=== PATIENT | female | born 1970 | race American Indian/Alaskan Native ===

== ENCOUNTER 2017-03-10 09:23 | Inpatient (IN) | payer MEDICAID, OTHER ==
[2017-03-10 10:48] LABS: BASO % 0.9 % (0.0-2.0); EOS % 0.6 % (0.0-4.0); HEMOGLOBIN 16.8 g/dL (11.0-16.0); LYMPH # 1.4 K/uL (1.0-4.3); LYMPH % 29.8 % (20.0-40.0); MEAN CELL VOLUME 91.8 fL (81.0-99.0); MEAN CORPUSCULAR HEMOGLOBIN 31.8 pg (27.0-31.0); MEAN CORPUSCULAR HGB CONC 34.7 g/dL (33.0-37.0); MEAN PLATELET VOLUME 9.1 fL (7.2-11.7); MONO # 0.2 K/uL (0.0-0.8); MONO % 3.4 % (0.0-10.0); NEUT % 65.3 % (50.0-75.0); NRBC % 0.1 % (0.0-2.0); RBC 5.28 Mil/uL (3.80-5.20); RED CELL DISTRIBUTION WIDTH 14.3 % (11.5-14.5); WHITE BLOOD COUNT 4.6 K/uL (4.8-10.8)
[2017-03-10 10:54] LABS: HCG,QUALITATIVE URINE NEGATIVE (NEGATIVE)
[2017-03-10 11:01] LABS: SQUAMOUS EPITHIAL 1 /hpf (0-5); URINE BACTERIA RARE (<OCC); URINE BILIRUBIN NEGATIVE (NEGATIVE); URINE BLOOD 2+ (NEGATIVE); URINE CLARITY Clear (Clear); URINE COLOR Yellow (YELLOW); URINE GLUCOSE (UA) NORMAL (Normal); URINE LEUKOCYTE ESTERASE NEG Leu/uL (Negative); URINE NITRATE NEGATIVE (NEGATIVE); URINE PROTEIN 2+ mg/dL (NEGATIVE); URINE UROBILINOGEN NORMAL mg/dL (0.2-1.0)
[2017-03-10 11:02] LABS: ALBUMIN 4.6 g/dL (3.5-5.0); ALT/SGPT 32 U/L (9-52); AST/SGOT 23 U/L (14-36); BLOOD UREA NITROGEN 13 mg/dL (7-17); CALCIUM 9.3 mg/dl (8.6-10.4); GFR AFRICAN-AMERICAN > 60; GFR NON-AFRICAN AMERICAN > 60
[2017-03-10 11:08] LABS: ALB/GLOB RATIO 1.2 (1.0-2.1)
[2017-03-10 11:29] LABS: BARBITURATES, UR NEGATIVE (NEGATIVE); PHENCYCLIDINE, UR NEGATIVE (NEGATIVE)
[2017-03-10 11:51] LABS: BENZODIAZEPINES, UR POSITIVE (NEGATIVE); OPIATES, UR POSITIVE (NEGATIVE)
--- NOTE | 2017-03-10 11:57 | C.PDOC ---
History Of Present Illness 46 year old female presents to ED requesting detox from heroin, xanax, and cocaine. Last use was yesterday at 1700. Pt complaints of nausea, and intermittent vomiting since yesterday. Otherwise, denies fever, chills, severe headache, visual changes, focal deficits, CP, SOB, dyspnea, palpitation, diarrhea, abdominal pain, hematemesis, back pain, dysuria, hematuria, frequency , chest pain, SOB, or fever. Time Seen by Provider: 03/10/17 09:32 Chief Complaint (Nursing): Substance Abuse History Per: Patient History/Exam Limitations: no limitations Onset/Duration Of Symptoms: Days Current Symptoms Are (Timing): Still Present Suicide/Self Injury Attempted (Context): None Associated Symptoms: denies: Suicidal Thoughts, Suicidal Plan Involuntary Hold By: None Recent travel outside of the [place]: No Additional History Per: Patient Past Medical History Reviewed: Historical Data, Nursing Documentation, Vital Signs Vital Signs: Last Vital Signs Temp 99.6 F 03/10/17 17:18 Pulse 77 03/10/17 17:18 Resp 16 03/10/17 17:18 BP 160/95 H 03/10/17 17:18 Pulse Ox 100 03/10/17 17:18 - Medical History PMH: Bronchitis, HTN Denies: Diabetes, Hepatitis, HIV, Seizures, Sexually Transmitted Disease Surgical History: Back Surgery Family History: States: Unknown Family Hx - Social History Hx Alcohol Use: No Hx Substance Use: Yes - Immunization History Hx Tetanus Toxoid Vaccination: No Hx Influenza Vaccination: No Hx Pneumococcal Vaccination: No Review Of Systems Except As Marked, All Systems Reviewed And Found Negative. Constitutional: Negative for: Fever, Chills Cardiovascular: Negative for: Chest Pain, Palpitations Respiratory: Negative for: Cough, Shortness of Breath Gastrointestinal: Positive for: Nausea, Vomiting. Negative for: Abdominal Pain , Diarrhea, Hematemesis Neurological: Negative for: Headache, Dizziness Psych: Negative for: Suicidal ideation Physical Exam - Physical Exam Appears: Non-toxic, No Acute Distress Skin: Normal Color, Warm, Dry Head: Normacephalic Eye(s): bilateral: PERRL Nose: No Flaring Oral Mucosa: Moist, No Drooling Neck: Supple Cardiovascular: Rhythm Regular, No Murmur Respiratory: No Accessory Muscle Use, No Rales, No Rhonchi, No Wheezing Gastrointestinal/Abdominal: Soft, No Tenderness Extremity: Normal ROM, No Deformity Neurological/Psych: Oriented x3, Normal Speech ED Course And Treatment - Laboratory Results Result Diagrams: 03/10/17 10:41 03/10/17 10:41 Lab Interpretation: No Acute Changes Urine POC: Negative ECG: Interpreted By Me, Viewed By Me ECG Rhythm: Sinus Rhythm Interpretation Of ECG: SR@66/min, NAD, Left ventricular hyperthrophy, no acute ST-T changes O2 Sat by Pulse Oximetry: 100 (RA) Pulse Ox Interpretation: Normal Progress Note: While in ER, pt had multiple episodes of vomiting. Pt was given Zofran, Pepcid, and Ativan. Blood work, UA was ordered and reviewed. HTN was noted on presentation. Pt denies headache, dizziness, visual changes, focal deficits, CP, SOB, dyspnea, palpitation, or any other assciated sx. Pt admits, non-complaint with HTN medication. Clonidine given. At 12:02, pt was seen by LYNDSAY Salinas and case discussed with . Admission arranged to detox with Dx: opioid, benzo dependance. At 14:20, was told by RN, BP still remained high. Another dose of Clonidine given. At 16:20, as per RN, psych floor refused transfer until BP stabilized. Norvasc given. At 17:10, BP improved. Pt was accepted by psychiatrist now. Pt remained stable during the ED evaluation, neurologicaly intact. 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 - Scribe Statement The provider has reviewed the documentation as recorded by the Wilfredibclarke Hale All medical record entries made by the David were at my direction and personally dictated by me. I have reviewed the chart and agree that the record accurately reflects my personal performance of the history, physical exam, medical decision making, and the department course for this patient. I have also personally directed, reviewed, and agree with the discharge instructions and disposition.
[2017-03-10] MEDS ORDERED: Buprenorphine Hydrochloride 2 mg SL ONE ×2 (18:28→18:44)
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
--- NOTE | 2017-03-10 23:14 | PCM.BM ---
<Naya Vidal - Last Filed: 03/10/17 23:13> Treatment Plan Problems - Problems identified on initial assessmt Ineffective Coping Skills Date Initiated: 03/10/17 Time Initiated: 23:14 Assessment reference: NA Status: Active Treatment assets and liabiliti Patient Assests: ADL independent Patient Liabilities: substance abuse - Milieu Protocol Maintain good personal hygiene: daily Encourage regular showers, daily Remind patient to perform daily oral care, other Assist patient to perform ADL's Maintain personal safety: every shift Educate patient to report safety concerns to staff, every shift Monitor environment for contraband/sharps Medication safety: Monitor for expected outcome, potential side effects: every shift, Assess barriers to learning: every shift, Assess readiness for medication education: every shift <Maxime Alanis - Last Filed: 03/13/17 22:57> - Diagnosis (1) Opioid use disorder, severe, dependence Status: Acute Interventions: 03/13/17 22:57 * Assess 7x/week regarding severity of withdrawal * Educate regarding risks, benefits, side effects and alternatives of medications * Use Motivational Interviewing for abstinence * Use CBT for relapse prevention * Medication management for withdrawal symptoms * Encourage medication assisted treatment *
[2017-03-11] MEDS ORDERED: Buprenorphine Hydrochloride 2 mg SL SCH (10:00)
--- NOTE | 2017-03-11 10:02 | CP.PCM.PN ---
<PankajTito - Last Filed: 03/11/17 12:13> Subjective - Date & Time of Evaluation Date of Evaluation: 03/11/17 Time of Evaluation: 09:59 - Subjective Subjective: PGY-[address] Avila's service: Pt seen and examined at bedside in detox unit. Nursing reports pt has been able to keep meds down this AM, and BP improved. Patient found eating breakfast comfortably. She reports intense nausea, with episodes of vomiting last night. She now states she is less nauseous and has been tolerating liquid breakfast so far. She denies abdominal pain, but admits when she withdrawals she often gets diarrhea. Patient admits 10+ year history of cocaine, heroin, and xanax. Last use was 03/09/17 - 10-20 bags of heroin, 3 bags of cocaine and 1/2 brick of Xanax. She denies vision changes, weakness, headache, or oliguria. Objective - Vital Signs/Intake and Output Vital Signs (last 24 hours): Temp Pulse Resp BP Pulse Ox 98.2 F 82 18 110/66 100 03/11/17 05:58 03/11/17 05:58 03/11/17 05:58 03/11/17 05:58 03/11/17 05:58 - Medications Medications: Current Medications Clonidine HCl (Catapres) 0.1 mg PO Q8H PRN PRN Reason: Opioid Withdrawal Last Admin: 03/10/17 22:00 Dose: 0.1 mg Hydroxyzine HCl (Atarax) 25 mg PO Q6H PRN PRN Reason: Anxiety Lorazepam (Ativan) 1 mg PO Q6H PRN PRN Reason: Withdrawal Symptoms Last Admin: 03/10/17 22:00 Dose: 1 mg Ondansetron HCl (Zofran Odt) 4 mg PO Q6H PRN PRN Reason: Nausea/Vomiting Last Admin: 03/10/17 18:40 Dose: 4 mg Ondansetron HCl (Zofran Inj) 4 mg IM ONCE PRN PRN Reason: vomiting Trazodone HCl (Desyrel) 50 mg PO HS PRN PRN Reason: Insomnia - Labs Labs: 03/10/17 10:41 03/10/17 10:41 - Constitutional Appears: Non-toxic, No Acute Distress, Unkempt - Head Exam Head Exam: ATRAUMATIC, NORMAL INSPECTION - Eye Exam Eye Exam: EOMI. absent: Scleral icterus - ENT Exam ENT Exam: Mucous Membranes Moist - Neck Exam Neck Exam: Full ROM - Respiratory Exam Respiratory Exam: Clear to Ausculation Bilateral, NORMAL BREATHING PATTERN. absent: Accessory Muscle Use, Rales, Rhonchi, Wheezes - Cardiovascular Exam Cardiovascular Exam: REGULAR RHYTHM, +S1, +S2 - GI/Abdominal Exam GI & Abdominal Exam: Soft, Normal Bowel Sounds. absent: Tenderness - Extremities Exam Extremities Exam: Normal Inspection. absent: Pedal Edema, Tenderness - Back Exam Back Exam: absent: CVA tenderness (L), CVA tenderness (R) - Neurological Exam Neurological Exam: Alert, Awake, Oriented x3 - Psychiatric Exam Psychiatric exam: Normal Affect, Normal Mood - Skin Skin Exam: Normal Color, Warm Assessment and Plan - Assessment and Plan (Free Text) Plan: Uncontrolled HTN Likely a manifestation from current withdrawals Patient admits taking anti-hypertensive at home but does not remember name Clonidine 0.1mg PO Q8H (prescribed by psych team for withdrawal symptoms) Will Monitor and add med if necessary Polysubstance abuse Management per psychiatry Tito Lira PGY-2 Discussed with attending, Dr. Avila <Tobin Avila - Last Filed: 03/11/17 14:32> Objective - Vital Signs/Intake and Output Vital Signs (last 24 hours): Temp Pulse Resp BP Pulse Ox 98.7 F 70 20 139/86 100 03/11/17 13:55 03/11/17 13:55 03/11/17 13:55 03/11/17 13:55 03/11/17 13:55 - Medications Medications: Current Medications Buprenorphine HCl (Subutex) 4 mg SL .TAPER SUSANA PRN Reason: Taper Stop: 03/14/17 11:02 Clonidine HCl (Catapres) 0.1 mg PO Q8H PRN PRN Reason: Opioid Withdrawal Last Admin: 03/10/17 22:00 Dose: 0.1 mg Hydroxyzine HCl (Atarax) 25 mg PO Q6H PRN PRN Reason: Anxiety Lorazepam (Ativan) 1 mg PO Q6H PRN PRN Reason: Withdrawal Symptoms Last Admin: 03/11/17 10:21 Dose: 1 mg Ondansetron HCl (Zofran Odt) 4 mg PO Q6H PRN PRN Reason: Nausea/Vomiting Last Admin: 03/11/17 10:21 Dose: 4 mg Trazodone HCl (Desyrel) 50 mg PO HS PRN PRN Reason: Insomnia - Labs Labs: 03/10/17 10:41 03/10/17 10:41 Attending/Attestation - Attestation I have personally seen and examined this patient.: Yes I have fully participated in the care of the patient.: Yes I have reviewed all pertinent clinical information, including history, physical exam and plan: Yes Notes (Text): 03/11/17 14:32 Medical attending: Patient was seen and examined by the medical scheduler and myself. Agree with the above note by the medical scheduler. The patient when we saw her was ambulating in the [address] unit. She did not appear to be in any acute distress when we saw her. When the patient came in yesterday at night I was informed that she was having a lot of nausea, a lot of vomiting and there was some concern that the patient would not be able to hold down her medications. Since then she's done well she says. The nausea and vomiting subsided. She's been able to tolerate by mouth medications. We will continue to monitor see how the patient does thank you Tobin Avila
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
--- NOTE | 2017-03-12 07:55 | CP.PCM.PN ---
<Tito Lira - Last Filed: 03/12/17 10:52> Subjective - Date & Time of Evaluation Date of Evaluation: 03/12/17 Time of Evaluation: 07:55 - Subjective Subjective: PGY-[address] Avila's service: Pt seen and examined at bedside in detox unit. Nursing reports patient has vomited several times last evening. Pt was briefly hypertensive overnight during vomiting episode otherwise patient well controlled. Patient found lying in bed. She states she still feels slightly nauseous but has held down liquid breakfast. She denies N/V episodes this AM. She further denies headache, fever, chills, vision changes, abdominal pain, N/V. Objective - Vital Signs/Intake and Output Vital Signs (last 24 hours): Temp Pulse Resp BP Pulse Ox 98.5 F 83 18 134/89 96 03/12/17 06:06 03/12/17 06:06 03/12/17 06:06 03/12/17 06:06 03/12/17 06:06 - Medications Medications: Current Medications Buprenorphine HCl (Subutex) 4 mg SL .TAPER SUSANA PRN Reason: Taper Stop: 03/14/17 11:02 Clonidine HCl (Catapres) 0.1 mg PO Q8H PRN PRN Reason: Opioid Withdrawal Last Admin: 03/11/17 20:09 Dose: 0.1 mg Hydroxyzine HCl (Atarax) 25 mg PO Q6H PRN PRN Reason: Anxiety Last Admin: 03/12/17 01:28 Dose: 25 mg Lorazepam (Ativan) 1 mg PO Q6H PRN PRN Reason: Withdrawal Symptoms Last Admin: 03/11/17 20:09 Dose: 1 mg Ondansetron HCl (Zofran Odt) 4 mg PO Q6H PRN PRN Reason: Nausea/Vomiting Last Admin: 03/12/17 01:28 Dose: 4 mg Trazodone HCl (Desyrel) 50 mg PO HS PRN PRN Reason: Insomnia Last Admin: 03/12/17 01:28 Dose: 50 mg - Labs Labs: 03/10/17 10:41 03/10/17 10:41 - Additional Findings Additional findings: - Constitutional Appears: Non-toxic, No Acute Distress, Unkempt - Head Exam Head Exam: ATRAUMATIC, NORMAL INSPECTION - Eye Exam Eye Exam: EOMI. absent: Scleral icterus - ENT Exam ENT Exam: Mucous Membranes Moist - Neck Exam Neck Exam: Full ROM - Respiratory Exam Respiratory Exam: Clear to Ausculation Bilateral, NORMAL BREATHING PATTERN. absent: Accessory Muscle Use, Rales, Rhonchi, Wheezes - Cardiovascular Exam Cardiovascular Exam: REGULAR RHYTHM, +S1, +S2 - GI/Abdominal Exam GI & Abdominal Exam: Soft, Normal Bowel Sounds. absent: Tenderness - Extremities Exam Extremities Exam: Normal Inspection. absent: Pedal Edema, Tenderness - Back Exam Back Exam: absent: CVA tenderness (L), CVA tenderness (R) - Neurological Exam Neurological Exam: Alert, Awake, Oriented x3 - Psychiatric Exam Psychiatric exam: Normal Affect, Normal Mood - Skin Skin Exam: Normal Color, Warm Assessment and Plan - Assessment and Plan (Free Text) Plan: Uncontrolled HTN Likely a manifestation from current withdrawals Patient admits taking anti-hypertensive Lotensin at home but "has not taken it recently" Clonidine 0.1mg PO Q8H (prescribed by psych team for withdrawal symptoms) Ativan 1 mg PO Q6H PRN (prescribed by psych team for withdrawal symptoms) Polysubstance abuse Management per psychiatry Medicine team will sign off at this time. BP is well controlled save for one episode of HTN following vomiting episode last evening. Consult again if needed Tito Lira PGY-2 Discussed with attending, Dr. Avila <Tobin Avila - Last Filed: 03/12/17 12:18> Objective - Vital Signs/Intake and Output Vital Signs (last 24 hours): Temp Pulse Resp BP Pulse Ox 98.6 F 95 H 18 115/72 98 03/12/17 08:29 03/12/17 08:29 03/12/17 08:29 03/12/17 08:29 03/12/17 08:29 - Medications Medications: Current Medications Clonidine HCl (Catapres) 0.1 mg PO Q8H PRN PRN Reason: Opioid Withdrawal Last Admin: 03/11/17 20:09 Dose: 0.1 mg Hydroxyzine HCl (Atarax) 25 mg PO Q6H PRN PRN Reason: Anxiety Last Admin: 03/12/17 10:11 Dose: 25 mg Lorazepam (Ativan) 1 mg PO Q6H PRN PRN Reason: Withdrawal Symptoms Last Admin: 03/11/17 20:09 Dose: 1 mg Ondansetron HCl (Zofran Odt) 4 mg PO Q6H PRN PRN Reason: Nausea/Vomiting Last Admin: 03/12/17 01:28 Dose: 4 mg Trazodone HCl (Desyrel) 50 mg PO HS PRN PRN Reason: Insomnia Last Admin: 03/12/17 01:28 Dose: 50 mg - Labs Labs: 03/10/17 10:41 03/10/17 10:41 Attending/Attestation - Attestation I have personally seen and examined this patient.: Yes I have fully participated in the care of the patient.: Yes I have reviewed all pertinent clinical information, including history, physical exam and plan: Yes Notes (Text): 03/12/17 12:18 Medical attending: Patient was seen and examined by me, agree with the above note by medical claims analyst. When we saw her she reported that overnight she had some nausea and vomiting. However by daytime things that settled down after she was given her medication By the time we saw her she was not in any acute distress. She was in her room. She is says that she was able to drink fluids without any problems however she stomach felt too queasy to try area very solid food So at this time her neck and make any large changes. thank you Tobin Avila
[2017-03-12] MEDS ORDERED: Buprenorphine Hydrochloride 2 mg SL SCH ×3 (10:15→11:03)
[2017-03-12] MEDS ORDERED: Buprenorphine Hydrochloride 2 mg SL ONE (10:30)
--- NOTE | 2017-03-12 17:17 | PCM.PYCHPN ---
Psychiatric Progress Note - Psychiatric Progress Note Patient seen today, length of contact: 15 minutes Patient Chief Complaint: I'm feeling much better with the treatment. Problems Identified/Issues Discussed: Patient seen, chart reviewed, case discussed with the staff. Issues related to illness and treatment were discussed with the patient. Reported compliant with treatment with no adverse affects. Medical team is on the case for the control for hypertension. Aftercare discussed with the patient. At the time of evaluation, patient was awake alert oriented 3, had no delusions , no auditory or visual hallucinations, no suicidal ideations or homicidal ideations. Medical Problems: Hypertension Diagnostic Results: Reviewed DSM 5 Symptoms Update: Improving with treatment Medication Change: No Medical Record Reviewed: Yes Consults ordered or reviewed: Reviewed Mental Status Examination - Cognitive Function Orientation: Person, Place, Situation, Time Memory: Intact Attention: WNL Concentration: WNL Association: WNL Fund of Knowledge: WN Decription of patient's judgement and insights: Fair - Mood Mood: Anxious (Less than before) - Affect Affect: Other (Appropriate) - Speech Speech: Appropriate - Formal Thought Process Formal Thought Process: No Impairment Psychotic Thoughts and Behaviors: None - Suicidal Ideation Suicidal Ideation: No - Homicidal Ideation Homicidal Ideation: No Goal/Treatment Plan - Goal/Treatment Plan Need for Continued Stay: Remain at risks for inpatient hospitalization, Discharge may exacerbated symptoms, Severe functional impairment Progress Toward Problem(s) and Goals/Treatment Plan: Patient education. Supportive therapy. Motivational interview for abstinence. CBT for relapse prevention. Continue treatment as before. Patient attended side any follow-up care.. Estimated Date of D/C: 03/13/17 - Smoking Cessation Smoking Cessation Initiated: No
[2017-03-12 20:35] VITALS: RESP 18
[2017-03-13 06:06] VITALS: TEMP 98.6
[2017-03-13 08:49] VITALS: BP 108/68; PULSE 92; O2SAT 100
[2017-03-13] MEDS ORDERED: Buprenorphine Hydrochloride 2 mg SL ONE (08:53)
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
[2017-03-13] MEDS ORDERED: Buprenorphine Hydrochloride 2 mg SL SCH (10:00)
== END 2017-03-13 10:30 | disposition home or self-care (01) | DRG 430 ==
LOC: C.ER 09:23 → C.9E 12:38 → C.7D 17:29
PROVIDERS: ADMIT Psychiatry & Neurology Psychiatry; ATTEND Psychiatry & Neurology Psychiatry
PROC: GZ56ZZZ Individual Psychotherapy, Supportive (ICD-10-PCS; principal; 2017-03-10)
DX: F25.0 Schizoaffective disorder, bipolar type (principal); F11.20 Opioid dependence, uncomplicated; F14.10 Cocaine abuse, uncomplicated; Z91.19 Patient's noncompliance with other medical treatment and regimen; F17.210 Nicotine dependence, cigarettes, uncomplicated; I10 Essential (primary) hypertension; F19.10 Other psychoactive substance abuse, uncomplicated

== ENCOUNTER 2017-07-28 16:41 | Inpatient (IN) | payer MEDICAID, OTHER ==
[2017-07-28 16:53] VITALS: BMI 27.3
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
[2017-07-28 18:11] LABS: HCG,QUALITATIVE URINE NEGATIVE (NEGATIVE)
[2017-07-28 18:13] LABS: BASO # 0.1 K/uL (0.0-0.2); BASO % 0.9 % (0.0-2.0); EOS # 0.3 K/uL (0.0-0.7); HEMOGLOBIN 14.3 g/dL (11.0-16.0); LYMPH # 3.8 K/uL (1.0-4.3); LYMPH % 60.9 % (20.0-40.0); MEAN CELL VOLUME 91.8 fL (81.0-99.0); MEAN CORPUSCULAR HEMOGLOBIN 30.8 pg (27.0-31.0); MEAN CORPUSCULAR HGB CONC 33.6 g/dL (33.0-37.0); MEAN PLATELET VOLUME 8.9 fL (7.2-11.7); MONO # 0.4 K/uL (0.0-0.8); MONO % 6.4 % (0.0-10.0); NEUT # 1.7 K/uL (1.8-7.0); NEUT % 26.8 % (50.0-75.0); NRBC % 0.1 % (0.0-2.0); RBC 4.65 Mil/uL (3.80-5.20); RED CELL DISTRIBUTION WIDTH 14.1 % (11.5-14.5); WHITE BLOOD COUNT 6.2 K/uL (4.8-10.8)
[2017-07-28 18:21] LABS: SQUAMOUS EPITHIAL < 1 /hpf (0-5); URINE BACTERIA RARE (<OCC); URINE BILIRUBIN NEGATIVE (NEGATIVE); URINE BLOOD 1+ (NEGATIVE); URINE CLARITY Hazy (Clear); URINE GLUCOSE (UA) NORMAL (Normal); URINE LEUKOCYTE ESTERASE NEG Leu/uL (Negative); URINE PROTEIN 1+ mg/dL (NEGATIVE)
[2017-07-28 18:22] LABS: URINE COLOR YELLOW (YELLOW)
[2017-07-28 18:27] LABS: ALB/GLOB RATIO 1.4 (1.0-2.1); ALBUMIN 4.3 g/dL (3.5-5.0); ALT/SGPT 20 U/L (9-52); AST/SGOT 28 U/L (14-36); BARBITURATES, UR NEGATIVE (NEGATIVE); BLOOD UREA NITROGEN 11 mg/dL (7-17); GFR AFRICAN-AMERICAN > 60; GFR NON-AFRICAN AMERICAN 59; PHENCYCLIDINE, UR NEGATIVE (NEGATIVE)
[2017-07-28 18:32] LABS: BENZODIAZEPINES, UR POSITIVE (NEGATIVE); OPIATES, UR POSITIVE (NEGATIVE)
--- NOTE | 2017-07-28 20:24 | PCM.BM ---
<Maeve Valencia - Last Filed: 07/28/17 20:23> Treatment Plan Problems - Problems identified on initial assessmt potiential for opiate withdrawal Date Initiated: 07/28/17 Time Initiated: 20:23 Assessment reference: NA Status: Active Treatment assets and liabiliti Patient Assests: ADL independent, cognitively intact Patient Liabilities: substance abuse, medical problems - Milieu Protocol Maintain good personal hygiene: daily Encourage regular showers, daily Remind patient to perform daily oral care, daily Assist patient to perform ADL's Maintain personal safety: every shift Educate patient to report safety concerns to staff, every shift Monitor environment for contraband/sharps Medication safety: Monitor for expected outcome, potential side effects: every shift, Assess barriers to learning: every shift, Assess readiness for medication education: every shift <Maxime Alanis - Last Filed: 07/29/17 08:57> - Diagnosis (1) Opioid use disorder, severe, dependence Status: Acute Interventions: 07/29/17 08:57 * Assess 7x/week regarding severity of withdrawal * Educate regarding risks, benefits, side effects and alternatives of medications * Use Motivational Interviewing for abstinence * Use CBT for relapse prevention * Medication management for withdrawal symptoms * Encourage medication assisted treatment *
[2017-07-29] MEDS ORDERED: Aluminum Hydroxide/Magnesium Hydroxide Susp (30 mL) PO PRN (08:56)
--- NOTE | 2017-07-29 08:57 | PCM.PSYCH ---
Initial Psychiatric Evaluation - Initial Psychiatric Evaluation Type of Admission: Voluntary Legal Status: Capacity Chief Complaint (in patient's own words): "I don't feel well, I need help" History of Present Illness and Precipitating Events: The patient is seen, chart reviewed and case discussed. This is a 47-year-old -[place] Citizen female, with 2 adult children and 1 grandson child. She lives with her . She is on SSI. The patient is here for heroin detox and she uses 15 bags intranasally. She also smokes cocaine and uses Xanax 2 mg, half tablet a day but "sometimes." She was in detox 5 times and rehabilitation twice. She also smokes 1 pack per day cigarettes but denies all other drugs and alcohol. Past psych history: She was diagnosed with schizoaffective disorder and admitted twice but she says "long ago." Currently she is not on medications and she is stable. Medical history: Hypertension Family psych history: Denies Current Medications: Active Medications Generic Name Dose Route Start Last Admin Trade Name Freq PRN Reason Stop Dose Admin Clonidine HCl 0.1 mg 07/28/17 23:57 Catapres PO Q6 PRN Withdrawal Symptoms Ondansetron HCl 4 mg 07/28/17 23:56 Zofran Tab PO Q6 PRN Nausea/Vomiting Trazodone HCl 100 mg 07/28/17 22:38 07/28/17 22:44 Desyrel PO 100 mg HS PRN Administration insomnia Past Psychiatric History - Past Psychiatric History Previous Treatment History: Inpatient Pertinent Medical Hx (Current Medical&Sleep Prob, Allergies): Allergies Allergy/AdvReac Type Severity Reaction Status Date / Time Penicillins Allergy Severe ANGIOEDEMA Verified 07/28/17 16:51 Losartan/Hydrochlorothiazide [Losartan-Hctz 50-12.5 mg Tab] 1 each PO DAILY Review of Systems - Neurological Neurological: UNREMARKABLE - Psychiatric Psychiatric: Abnormal Sleep Pattern, Anxiety, Depression, Difficulty Concentrating. absent: Hallucinations, Homicidal Ideation, Suicidal Ideation Mental Status Examination - Personal Presentation Personal Presentation: Looks stated age - Affect Affect: Constricted - Motor Activity Motor Activity: Calm - Reliability in Providing Information Reliability in Providing Information: Good - Speech Speech: Organized - Mood Mood: Depressed (mild), Anxious - Formal Thought Process Formal Thought Process: No Impairment - Cognitive Functions Orientation: Person, Place, Situation, Time Sensorium: Alert Attention/Concentration: Easily distracted Estimate of Intelligence: Average Judgement: Intact, as evidence by: Insight regarding need for hospitalization Memory: Recent intact, as evidence by: Ability to recall events of the day, Remote intact, as evidenced by: Abilit to recall sig. life events - Risk Risk: Withdrawal, Diminished functioning - Strength & Assets Inventory Strength & Assets Inventory: Family support, Cooperative - Limitations Limitations: Other DSM 5 DX - DSM 5 DSM 5 Diagnosis: opioid withdrawal Opioid use disorder, severe Cocaine use disorder, severe Sedative, hypnotic or anxiolytic use disorder, mild Tobacco use disorder, severe Schizoaffective disorder, depressed Hypertension - Recommended/Plan of Treatment Treatment Recommendations and Plan of Treatment: Taper with methadone Gabapentin for augmentation if needed As needed medications All risks, benefits and alternatives of the meds discussed, and the pt agreed and understood. Attend groups and activities Supportive therapy and psychoeducation DE for abstinence CBT for relapse prevention Encourage MAT Refer to rehab or IOP, and self-help groups Smoking cessation with DE Nicotine patch if needed 34 min Projected ELOS: 4-5 days Prognosis: god w treatment - Smoking Cessation Smoking Cessation Initiated: Yes
[2017-07-29] MEDS: Potassium Chloride 20 mEq ER Tab PO SCH (10:21)
[2017-07-30] MEDS: Potassium Chloride 20 mEq ER Tab PO SCH (10:16)
[2017-07-30] MEDS: Pantoprazole 40 mg EC Tab PO SCH (10:17)
--- NOTE | 2017-07-30 11:50 | PCM.PYCHPN ---
Psychiatric Progress Note - Psychiatric Progress Note Patient seen today, length of contact: 16 min Patient Chief Complaint: "I am not well" Problems Identified/Issues Discussed: The pt is seen, chart reviewed, case discussed with staff. The pt is compliant with medications and reports no side-effects. Symptoms are improving but needs more time to stabilize. Still having BP fluctuations, irritable, screams and lies on the floor sometimes - better with ongoing detox After care discussed, support and psychoeducation given. Medication Change: Yes (detox changes daily) Medical Record Reviewed: Yes Mental Status Examination - Cognitive Function Orientation: Person, Place, Situation, Time Memory: Impaired Attention: Poor Concentration: Poor Association: WNL Fund of Knowledge: Poor - Mood Mood: Depressed (mild), Anxious - Affect Affect: Constricted - Speech Speech: Appropriate - Formal Thought Process Formal Thought Process: No Impairment - Suicidal Ideation Suicidal Ideation: No - Homicidal Ideation Homicidal Ideation: No Goal/Treatment Plan - Goal/Treatment Plan Need for Continued Stay: Discharge may exacerbated symptoms, Severe functional impairment Progress Toward Problem(s) and Goals/Treatment Plan: Taper with methadone Gabapentin for augmentation if needed As needed medications All risks, benefits and alternatives of the meds discussed, and the pt agreed and understood. Attend groups and activities Supportive therapy and psychoeducation MS for abstinence CBT for relapse prevention Encourage MAT Refer to rehab or IOP, and self-help groups Smoking cessation with MS Nicotine patch if needed Medicine will be consulted Estimated Date of D/C: 08/02/17
--- NOTE | 2017-07-30 16:19 | CP.PCM.CON ---
<Anjali Godinez - Last Filed: 07/30/17 16:51> History of Present Illness - History of Present Illness History of Present Illness: 47 year old female with history of hypertension, cocaine and heroin abuse was admitted to detox unit. Medical service was consulted to evaluate patient's uncontrolled hypertension. Patient has been sleeping in her room most of today. Her evening BP was found be be 210/109. Patient is very drowsy at the time of interview. I had to wake the patient up multiple times. Currently patient complains of dizziness and chills. She denies having blurred vision, shortness of breath, chest pain, vomiting, or urinary complaints. Patient is taking unknown hypertension medication (likely Losartan/HCTZ per chart review) outside of the hospital but was not compliant with it. She has been receiving clonidine while in detox for withdrawal symptoms. She has not been eating well due to withdrawals. PMHx: hypertension, cocaine and heroin abuse PSHx: back surgery Allergy: penicillins Social: Denies alcohol use. smokes a pack of cigarettes daily for 10+ years. Cocaine and heroin daily by snorting. Home meds: Losartan-HCTZ Review of Systems - Review of Systems All systems: reviewed and no additional remarkable complaints except - Constitutional Constitutional: As Per HPI, Chills, Fatigue - EENT Eyes: As Per HPI. absent: Blind Spots, Blurred Vision, Decreased Night Vision, Diplopia Ears: As Per HPI. absent: Decreased Hearing, Ear Discharge, Dizziness Nose/Mouth/Throat: As Per HPI. absent: Epistaxis, Nasal Trauma, Nose Pain - Breasts Breasts: As Per HPI - Cardiovascular Cardiovascular: As Per HPI. absent: Chest Pain, Chest Pain at Rest, Chest Pain with Activity, Dyspnea - Respiratory Respiratory: As Per HPI. absent: Cough, Dyspnea, Wheezing, Stridor - Gastrointestinal Gastrointestinal: As Per HPI. absent: Abdominal Pain, Diarrhea, Nausea, Vomiting - Genitourinary Genitourinary: As Per HPI. absent: Change in Urinary Stream, Hematuria, Pyuria - Reproductive: Female Reproductive:Female: As Per HPI - Menstruation Menstruation: As Per HPI - Musculoskeletal Musculoskeletal: As Per HPI. absent: Back Pain, Deformity, Joint Swelling, Tingling - Integumentary Integumentary: As Per HPI. absent: Alopecia, Change in Nails, Furuncle - Neurological Neurological: As Per HPI. absent: Dizziness, Tingling, Tremor, Vertigo - Psychiatric Psychiatric: As Per HPI. absent: Anxiety, Confusion, Depression - Endocrine Endocrine: As Per HPI, Fatigue. absent: Polydipsia, Polyphagia, Polyuria - Hematologic/Lymphatic Hematologic: As Per HPI Past Patient History - Past Medical History & Family History Past Medical History?: Yes - Past Social History Smoking Status: Heavy Smoker > 10 Cigarettes Daily - CARDIAC Hx Hypertension: Yes - PULMONARY Hx Bronchitis: Yes (Hx.) - NEUROLOGICAL Hx Seizures: No (Denied) - ENDOCRINE/METABOLIC Hx Endocrine Disorders: No - HEMATOLOGICAL/ONCOLOGICAL Hx Human Immunodeficiency Virus (HIV): No - MUSCULOSKELETAL/RHEUMATOLOGICAL Hx Musculoskeletal Disorders: Yes (SEE COMMENT) Hx Falls: No - GASTROINTESTINAL Hx Gastrointestinal Disorders: No - GENITOURINARY/GYNECOLOGICAL Hx Sexually Transmitted Disorders: No - PSYCHIATRIC Hx Substance Use: Yes - SURGICAL HISTORY Hx Tonsillectomy: Yes - ANESTHESIA Hx Anesthesia: Yes Hx Anesthesia Reactions: No Hx Malignant Hyperthermia: No Meds Allergies/Adverse Reactions: Allergies Allergy/AdvReac Type Severity Reaction Status Date / Time Penicillins Allergy Severe ANGIOEDEMA Verified 07/28/17 16:51 - Medications Medications: Current Medications Al Hydrox/Mg Hydrox/Simethicone (Maalox 30 Ml) 30 ml PO TID PRN PRN Reason: Indigestion / Heartburn Clonidine HCl (Catapres) 0.1 mg PO Q6 PRN PRN Reason: Withdrawal Symptoms Last Admin: 07/30/17 13:58 Dose: 0.1 mg Cyclobenzaprine HCl (Flexeril) 5 mg PO TID [facility] Last Admin: 07/30/17 13:58 Dose: 5 mg Dicyclomine HCl (Bentyl) 10 mg PO Q6 PRN PRN Reason: Muscle spasm Last Admin: 07/30/17 15:33 Dose: 10 mg Gabapentin (Neurontin) 300 mg PO TID [facility] Last Admin: 07/30/17 13:58 Dose: 300 mg Hydralazine HCl (Apresoline) 25 mg PO BID [facility] Hydrochlorothiazide (Hydrodiuril) 25 mg PO DAILY [facility] Last Admin: 07/30/17 11:36 Dose: Not Given Hydroxyzine HCl (Atarax) 50 mg PO Q6H PRN PRN Reason: Anxiety Last Admin: 07/30/17 15:34 Dose: 50 mg Ibuprofen (Motrin Tab) 600 mg PO Q6H PRN PRN Reason: Pain, moderate (4-7) Last Admin: 07/30/17 10:52 Dose: 600 mg Loperamide HCl (Imodium) 2 mg PO Q8 PRN PRN Reason: Diarrhea Lorazepam (Ativan) 1 mg IM Q6H PRN PRN Reason: severe anxiety Last Admin: 07/30/17 08:33 Dose: 1 mg Losartan Potassium (Cozaar) 75 mg PO DAILY [facility] Last Admin: 07/30/17 11:37 Dose: Not Given Methadone HCl (Methadone) 20 mg PO Q24H [facility] PRN Reason: Taper Stop: 08/03/17 09:59 Last Admin: 07/30/17 09:27 Dose: 20 mg Nicotine (Nicoderm Cq) 1 patch TD DAILY [facility] Last Admin: 07/30/17 11:37 Dose: Not Given Ondansetron HCl (Zofran Tab) 4 mg PO Q6 PRN PRN Reason: Nausea/Vomiting Last Admin: 07/30/17 01:34 Dose: 4 mg Ondansetron HCl (Zofran Inj) 4 mg IM DAILY@ONCE PRN PRN Reason: Nausea/Vomiting Last Admin: 07/30/17 06:53 Dose: 4 mg Pantoprazole Sodium (Protonix Ec Tab) 40 mg PO DAILY [facility] Last Admin: 07/30/17 10:17 Dose: 40 mg Trazodone HCl (Desyrel) 100 mg PO HS PRN PRN Reason: insomnia Last Admin: 07/30/17 01:35 Dose: 100 mg Physical Exam - Constitutional Appears: Non-toxic, No Acute Distress - Head Exam Head Exam: ATRAUMATIC, NORMOCEPHALIC - Eye Exam Eye Exam: EOMI, Normal appearance, PERRL - ENT Exam ENT Exam: Mucous Membranes Moist - Neck Exam Neck exam: Positive for: Normal Inspection - Respiratory Exam Respiratory Exam: Clear to Auscultation Bilateral, NORMAL BREATHING PATTERN. absent: Wheezes, Respiratory Distress - Cardiovascular Exam Cardiovascular Exam: REGULAR RHYTHM, +S1, +S2. absent: Diastolic murmur, Systolic Murmur - GI/Abdominal Exam GI & Abdominal Exam: Normal Bowel Sounds, Soft. absent: Tenderness - Extremities Exam Extremities exam: Positive for: normal capillary refill, normal inspection, pedal pulses present. Negative for: joint swelling, tenderness - Neurological Exam Neurological exam: Alert, CN II-XII Intact, Oriented x3 - Psychiatric Exam Psychiatric exam: Normal Affect, Normal Mood - Skin Skin Exam: Dry, Warm Results - Vital Signs Recent Vital Signs: Last Vital Signs Temp 100.4 F H 07/30/17 15:15 Pulse 76 07/30/17 15:15 Resp 18 07/30/17 15:15 BP 210/109 H 07/30/17 15:15 Pulse Ox 97 07/30/17 15:15 - Labs Result Diagrams: 07/28/17 18:06 07/28/17 18:06 Labs: Laboratory Results - last 24 hr 07/29/17 07/29/17 16:42 16:42 Hepatitis C Antibody Negative HIV 1&2 Antibody Screen Negative Assessment & Plan - Assessment and Plan (Free Text) Assessment: Hypertensive Urgency Likely due to current withdrawal symptoms Continue HCT/Losartan Start Hydralazine 25mg BID Monitor BP and symptoms Follow up EKG, AM labs Polysubstance abuse Management per psychiatry Discussed with attending physician Dr. Avila <Tobin Avila - Last Filed: 07/30/17 17:56> Meds - Medications Medications: Current Medications Al Hydrox/Mg Hydrox/Simethicone (Maalox 30 Ml) 30 ml PO TID PRN PRN Reason: Indigestion / Heartburn Clonidine HCl (Catapres) 0.1 mg PO Q6 PRN PRN Reason: Withdrawal Symptoms Last Admin: 07/30/17 13:58 Dose: 0.1 mg Cyclobenzaprine HCl (Flexeril) 5 mg PO TID [facility] Last Admin: 07/30/17 17:13 Dose: 5 mg Dicyclomine HCl (Bentyl) 10 mg PO Q6 PRN PRN Reason: Muscle spasm Last Admin: 07/30/17 15:33 Dose: 10 mg Gabapentin (Neurontin) 300 mg PO TID [facility] Last Admin: 07/30/17 17:14 Dose: 300 mg Hydralazine HCl (Apresoline) 25 mg PO BID [facility] Last Admin: 07/30/17 17:13 Dose: 25 mg Hydrochlorothiazide (Hydrodiuril) 25 mg PO DAILY [facility] Last Admin: 07/30/17 11:36 Dose: Not Given Hydroxyzine HCl (Atarax) 50 mg PO Q6H PRN PRN Reason: Anxiety Last Admin: 07/30/17 17:14 Dose: 50 mg Ibuprofen (Motrin Tab) 600 mg PO Q6H PRN PRN Reason: Pain, moderate (4-7) Last Admin: 07/30/17 10:52 Dose: 600 mg Loperamide HCl (Imodium) 2 mg PO Q8 PRN PRN Reason: Diarrhea Lorazepam (Ativan) 1 mg IM Q6H PRN PRN Reason: severe anxiety Last Admin: 07/30/17 08:33 Dose: 1 mg Losartan Potassium (Cozaar) 75 mg PO DAILY [facility] Last Admin: 07/30/17 11:37 Dose: Not Given Methadone HCl (Methadone) 20 mg PO Q24H [facility] PRN Reason: Taper Stop: 08/03/17 09:59 Last Admin: 07/30/17 09:27 Dose: 20 mg Nicotine (Nicoderm Cq) 1 patch TD DAILY [facility] Last Admin: 07/30/17 11:37 Dose: Not Given Ondansetron HCl (Zofran Tab) 4 mg PO Q6 PRN PRN Reason: Nausea/Vomiting Last Admin: 07/30/17 01:34 Dose: 4 mg Ondansetron HCl (Zofran Inj) 4 mg IM DAILY@ONCE PRN PRN Reason: Nausea/Vomiting Last Admin: 07/30/17 06:53 Dose: 4 mg Pantoprazole Sodium (Protonix Ec Tab) 40 mg PO DAILY [facility] Last Admin: 07/30/17 10:17 Dose: 40 mg Trazodone HCl (Desyrel) 100 mg PO HS PRN PRN Reason: insomnia Last Admin: 07/30/17 01:35 Dose: 100 mg Results - Vital Signs Recent Vital Signs: Last Vital Signs Temp 100.4 F H 07/30/17 15:15 Pulse 76 07/30/17 15:15 Resp 18 07/30/17 15:15 BP 210/109 H 07/30/17 15:15 Pulse Ox 97 07/30/17 15:15 - Labs Result Diagrams: 07/28/17 18:06 07/28/17 18:06 Labs: Laboratory Results - last 24 hr 07/29/17 07/29/17 16:42 16:42 Hepatitis C Antibody Negative HIV 1&2 Antibody Screen Negative Attending/Attestation - Attestation I have personally seen and examined this patient.: Yes I have fully participated in the care of the patient.: Yes I have reviewed all pertinent clinical information: Yes Notes (Text): 07/30/17 17:51 Medical Consult: Patient was seen and examined by me. Agree with the above note by the resident We came and saw the patient together in 7D. The patient was NOT in any acute distress. She was sleeping and woke up to answer questions. Medicine was consulted due to elevated BP readings. Per RN there were numbers in the 200 systolic range and then she recived clonadine just before we arrived to see her. We shortly thereafter rechecked the BP and it was 180 systolic. Patient is in 7D for substance abuse including opiate and cocaine use. Per 7D staff, she was more active yesterday and walking around however today was mostly in bed. Patient explained she had some abdominal cramping. Otherwise denied chest pain or headache. Probably yesterday she still had some of the polysubstance abuse left in her body and today as she is now getting this out of her system she is starting to feel more of the affects of the withdrawl. I explained this to the patient. For now we added on hydralazine 25 PO BID. She is already on HCTZ as well as Cozzar and PRN Clonadine. We will try to check lab work tommorow as well. thank you Tobin Avila
[2017-07-30] MEDS ORDERED: Sodium Chloride 0.9% 1,000 ML IV ONE (22:48)
[2017-07-31 01:46] LABS: VENOUS BLOOD GAS BASE EXCESS 1.9 mmol/L (0.0-2.0); VENOUS BLOOD GAS PCO2 41 mmHg (40-60); VENOUS BLOOD GAS PO2 49 mm/Hg (30-55); VENOUS BLOOD PH 7.42 (7.32-7.43)
[2017-07-31] MEDS ORDERED: Sodium Chloride 0.9% 1,000 ML IV ONE (02:05)
[2017-07-31 02:12] LABS: BASO # 0.1 K/uL (0.0-0.2); BASO % 1.1 % (0.0-2.0); EOS # 0.1 K/uL (0.0-0.7); EOS % 0.9 % (0.0-4.0); HEMOGLOBIN 15.4 g/dL (11.0-16.0); LYMPH # 3.1 K/uL (1.0-4.3); MEAN CELL VOLUME 91.7 fL (81.0-99.0); MEAN CORPUSCULAR HEMOGLOBIN 30.8 pg (27.0-31.0); MEAN CORPUSCULAR HGB CONC 33.6 g/dL (33.0-37.0); MEAN PLATELET VOLUME 9.4 fL (7.2-11.7); MONO # 1.1 K/uL (0.0-0.8); MONO % 13.1 % (0.0-10.0); NEUT % 47.9 % (50.0-75.0); RED CELL DISTRIBUTION WIDTH 13.7 % (11.5-14.5); WHITE BLOOD COUNT 8.3 K/uL (4.8-10.8)
[2017-07-31 02:22] LABS: ALB/GLOB RATIO 1.3 (1.0-2.1); ALBUMIN 3.8 g/dL (3.5-5.0); CALCIUM 8.3 mg/dl (8.6-10.4)
--- NOTE | 2017-07-31 06:50 | CP.PCM.PN ---
<Lacy Costa - Last Filed: 07/31/17 06:47> Subjective - Date & Time of Evaluation Date of Evaluation: 07/31/17 Time of Evaluation: 06:00 - Subjective Subjective: Patient was transferred to medical surgical floor for hypotension. Patient's blood pressure overnight was 70/40. Patient was lethargic. Patient was given 2 L bolus. VBG shock was done which showed a pH of 7.42. Patient refused oral potassium. Patient was then given potassium IV for repleation. Patient's blood pressure medications were placed on hold. Patient's blood pressure increased to 99/68. Morning labs were ordered. Objective - Vital Signs/Intake and Output Vital Signs (last 24 hours): Temp Pulse Resp BP Pulse Ox 98.2 F 59 L 20 110/73 97 07/31/17 00:35 07/31/17 04:00 07/31/17 00:35 07/31/17 05:12 07/31/17 00:35 - Medications Medications: Current Medications Al Hydrox/Mg Hydrox/Simethicone (Maalox 30 Ml) 30 ml PO TID PRN PRN Reason: Indigestion / Heartburn Clonidine HCl (Catapres) 0.1 mg PO Q6 PRN PRN Reason: Withdrawal Symptoms Last Admin: 07/30/17 13:58 Dose: 0.1 mg Cyclobenzaprine HCl (Flexeril) 5 mg PO TID [facility] Last Admin: 07/30/17 17:13 Dose: 5 mg Dicyclomine HCl (Bentyl) 10 mg PO Q6 PRN PRN Reason: Muscle spasm Last Admin: 07/30/17 15:33 Dose: 10 mg Gabapentin (Neurontin) 300 mg PO TID [facility] Last Admin: 07/30/17 17:14 Dose: 300 mg Hydralazine HCl (Apresoline) 25 mg PO BID [facility] Hydroxyzine HCl (Atarax) 50 mg PO Q6H PRN PRN Reason: Anxiety Last Admin: 07/30/17 15:34 Dose: 50 mg Sodium Chloride (Sodium Chloride 0.9%) 1,000 mls @ 100 mls/hr IV .Q10H [facility] Loperamide HCl (Imodium) 2 mg PO Q8 PRN PRN Reason: Diarrhea Lorazepam (Ativan) 1 mg IM Q6H PRN PRN Reason: severe anxiety Last Admin: 07/30/17 08:33 Dose: 1 mg Methadone HCl (Methadone) 20 mg PO Q24H [facility] PRN Reason: Taper Stop: 08/03/17 09:59 Last Admin: 07/30/17 09:27 Dose: 20 mg Nicotine (Nicoderm Cq) 1 patch TD DAILY [facility] Last Admin: 07/30/17 11:37 Dose: Not Given Ondansetron HCl (Zofran Tab) 4 mg PO Q6 PRN PRN Reason: Nausea/Vomiting Last Admin: 07/30/17 01:34 Dose: 4 mg Ondansetron HCl (Zofran Inj) 4 mg IM DAILY@ONCE PRN PRN Reason: Nausea/Vomiting Last Admin: 07/30/17 06:53 Dose: 4 mg Pantoprazole Sodium (Protonix Ec Tab) 40 mg PO DAILY [facility] Last Admin: 07/30/17 10:17 Dose: 40 mg Trazodone HCl (Desyrel) 100 mg PO HS PRN PRN Reason: insomnia Last Admin: 07/30/17 01:35 Dose: 100 mg - Labs Labs: 07/31/17 02:06 07/31/17 02:06 <Kareem Byrne P - Last Filed: 07/31/17 07:33> Objective - Vital Signs/Intake and Output Vital Signs (last 24 hours): Temp Pulse Resp BP Pulse Ox 98.2 F 59 L 20 110/73 97 07/31/17 00:35 07/31/17 04:00 07/31/17 00:35 07/31/17 05:12 07/31/17 00:35 - Medications Medications: Current Medications Al Hydrox/Mg Hydrox/Simethicone (Maalox 30 Ml) 30 ml PO TID PRN PRN Reason: Indigestion / Heartburn Clonidine HCl (Catapres) 0.1 mg PO Q6 PRN PRN Reason: Withdrawal Symptoms Last Admin: 07/30/17 13:58 Dose: 0.1 mg Cyclobenzaprine HCl (Flexeril) 5 mg PO TID [facility] Last Admin: 07/30/17 17:13 Dose: 5 mg Dicyclomine HCl (Bentyl) 10 mg PO Q6 PRN PRN Reason: Muscle spasm Last Admin: 07/30/17 15:33 Dose: 10 mg Gabapentin (Neurontin) 300 mg PO TID [facility] Last Admin: 07/30/17 17:14 Dose: 300 mg Hydralazine HCl (Apresoline) 25 mg PO BID [facility] Hydroxyzine HCl (Atarax) 50 mg PO Q6H PRN PRN Reason: Anxiety Last Admin: 07/30/17 15:34 Dose: 50 mg Sodium Chloride (Sodium Chloride 0.9%) 1,000 mls @ 100 mls/hr IV .Q10H [facility] Last Admin: 07/31/17 06:59 Dose: 100 mls/hr Loperamide HCl (Imodium) 2 mg PO Q8 PRN PRN Reason: Diarrhea Lorazepam (Ativan) 1 mg IM Q6H PRN PRN Reason: severe anxiety Last Admin: 07/30/17 08:33 Dose: 1 mg Methadone HCl (Methadone) 20 mg PO Q24H [facility] PRN Reason: Taper Stop: 08/03/17 09:59 Last Admin: 07/30/17 09:27 Dose: 20 mg Nicotine (Nicoderm Cq) 1 patch TD DAILY [facility] Last Admin: 07/30/17 11:37 Dose: Not Given Ondansetron HCl (Zofran Tab) 4 mg PO Q6 PRN PRN Reason: Nausea/Vomiting Last Admin: 07/30/17 01:34 Dose: 4 mg Ondansetron HCl (Zofran Inj) 4 mg IM DAILY@ONCE PRN PRN Reason: Nausea/Vomiting Last Admin: 07/30/17 06:53 Dose: 4 mg Pantoprazole Sodium (Protonix Ec Tab) 40 mg PO DAILY [facility] Last Admin: 07/30/17 10:17 Dose: 40 mg Trazodone HCl (Desyrel) 100 mg PO HS PRN PRN Reason: insomnia Last Admin: 07/30/17 01:35 Dose: 100 mg - Labs Labs: 07/31/17 02:06 07/31/17 02:06 Attending/Attestation - Attestation I have personally seen and examined this patient.: Yes I have fully participated in the care of the patient.: Yes I have reviewed all pertinent clinical information, including history, physical exam and plan: Yes Notes (Text): 07/31/17 07:29 Prior HTN due to withdrawal, then hypotension due to combination of methadone and medications for htn, renal insufficiency from the hypotension, patient was lethargic, but easily arousable, no neurological weakness. Transferred to medical floor for iv hydration, bp improved after 2 lit NS, now put on maintenance fluid for renal insufficiency, all antihypertensives held.
[2017-07-31] MEDS: Sodium Chloride 0.9% 1,000 ML IV SCH ×3 (06:59→22:13)
[2017-07-31 07:49] LABS: ALB/GLOB RATIO 1.3 (1.0-2.1); ALBUMIN 4.1 g/dL (3.5-5.0); CALCIUM 8.4 mg/dl (8.6-10.4)
[2017-07-31] MEDS: Pantoprazole 40 mg EC Tab PO SCH (09:44)
[2017-07-31] MEDS ORDERED: Bisacodyl 5mg EC Tab PO ONE (11:39)
--- NOTE | 2017-07-31 13:44 | PCM.PYCHPN ---
Psychiatric Progress Note - Psychiatric Progress Note Patient seen today, length of contact: 15 min Patient Chief Complaint: "I am better today" Problems Identified/Issues Discussed: The pt is seen, chart reviewed, case discussed with staff. She is now on the medical unit b/c she was having very high BP but it suddenly went down significantly Support given, psycho-educ. given She skipped her 15 mg methadone today but agreed to take the 10 and 5 next 2 days She was afraid she would withdraw at home (?) Medication Change: Yes (detox changes daily) Medical Record Reviewed: Yes Mental Status Examination - Cognitive Function Orientation: Person, Place, Situation, Time Memory: Impaired Attention: Poor Concentration: Poor Association: WNL Fund of Knowledge: Poor - Mood Mood: Depressed (mild), Anxious - Affect Affect: Constricted - Speech Speech: Appropriate - Formal Thought Process Formal Thought Process: No Impairment - Suicidal Ideation Suicidal Ideation: No - Homicidal Ideation Homicidal Ideation: No Goal/Treatment Plan - Goal/Treatment Plan Need for Continued Stay: Severe functional impairment, Other (medical) Progress Toward Problem(s) and Goals/Treatment Plan: Taper with methadone Gabapentin for augmentation if needed As needed medications All risks, benefits and alternatives of the meds discussed, and the pt agreed and understood. Supportive therapy and psychoeducation RI for abstinence Encourage MAT Refer to rehab or IOP, and self-help groups Smoking cessation with RI Nicotine patch if needed Medicine help appreciated Social Service Assistant will follow up here
--- NOTE | 2017-07-31 16:35 | CARD ---
APPROVED REPORT EKG Measurement Heart [id number] <Conclusion> Normal sinus rhythm Biatrial enlargement Left ventricular hypertrophy Prolonged QT Nonspecific ST changes Abnormal ECG
--- NOTE | 2017-07-31 16:45 | CP.PCM.PN ---
<Richa Patterson - Last Filed: 07/31/17 16:58> Subjective - Date & Time of Evaluation Date of Evaluation: 07/31/17 Time of Evaluation: 07:00 - Subjective Subjective: PGY1- Medicine note for Dr. Brar Patient seen and examined at bedside and in no acute distress. Patient admits to mild frontal headache, nausea, and constipation. Patient says that she usually only has a bowel movement every few days. Patient says she does not want anymore Methadone and wants to completely detox. Patient denies any chest pain, shortness of breath, or vomiting. Objective - Vital Signs/Intake and Output Vital Signs (last 24 hours): Temp Pulse Resp BP Pulse Ox 98.6 F 68 18 183/93 H 98 07/31/17 15:18 07/31/17 15:18 07/31/17 15:18 07/31/17 15:18 07/31/17 15:18 Intake and Output: 07/31/17 07/31/17 06:59 18:59 Intake Total 700 Balance 700 - Medications Medications: Current Medications Al Hydrox/Mg Hydrox/Simethicone (Maalox 30 Ml) 30 ml PO TID PRN PRN Reason: Indigestion / Heartburn Cyclobenzaprine HCl (Flexeril) 5 mg PO TID REPLACED BY [facility] Last Admin: 07/31/17 13:37 Dose: 5 mg Dicyclomine HCl (Bentyl) 10 mg PO Q6 PRN PRN Reason: Muscle spasm Last Admin: 07/30/17 15:33 Dose: 10 mg Gabapentin (Neurontin) 300 mg PO TID REPLACED BY [facility] Last Admin: 07/31/17 13:37 Dose: 300 mg Hydroxyzine HCl (Atarax) 50 mg PO Q6H PRN PRN Reason: Anxiety Last Admin: 07/30/17 15:34 Dose: 50 mg Sodium Chloride (Sodium Chloride 0.9%) 1,000 mls @ 100 mls/hr IV .Q10H REPLACED BY [facility] Last Admin: 07/31/17 06:59 Dose: 100 mls/hr Loperamide HCl (Imodium) 2 mg PO Q8 PRN PRN Reason: Diarrhea Lorazepam (Ativan) 1 mg IM Q6H PRN PRN Reason: severe anxiety Last Admin: 07/30/17 08:33 Dose: 1 mg Methadone HCl (Methadone) 15 mg PO Q24H SUSANA PRN Reason: Taper Stop: 08/03/17 09:59 Last Admin: 07/31/17 09:47 Dose: Not Given Nicotine (Nicoderm Cq) 1 patch TD DAILY REPLACED BY [facility] Last Admin: 07/31/17 10:44 Dose: Not Given Ondansetron HCl (Zofran Tab) 4 mg PO Q6 PRN PRN Reason: Nausea/Vomiting Last Admin: 07/31/17 10:30 Dose: 4 mg Ondansetron HCl (Zofran Inj) 4 mg IM DAILY@ONCE PRN PRN Reason: Nausea/Vomiting Last Admin: 07/30/17 06:53 Dose: 4 mg Pantoprazole Sodium (Protonix Ec Tab) 40 mg PO DAILY REPLACED BY [facility] Last Admin: 07/31/17 09:44 Dose: 40 mg Trazodone HCl (Desyrel) 100 mg PO HS PRN PRN Reason: insomnia Last Admin: 07/30/17 01:35 Dose: 100 mg - Labs Labs: 07/31/17 02:06 07/31/17 07:28 - Constitutional Appears: Non-toxic, No Acute Distress - Head Exam Head Exam: ATRAUMATIC, NORMAL INSPECTION, NORMOCEPHALIC - Eye Exam Eye Exam: EOMI, Normal appearance - ENT Exam ENT Exam: Mucous Membranes Moist - Respiratory Exam Respiratory Exam: Clear to Ausculation Bilateral, NORMAL BREATHING PATTERN - Cardiovascular Exam Cardiovascular Exam: REGULAR RHYTHM, RRR, +S1, +S2 - GI/Abdominal Exam GI & Abdominal Exam: Soft, Tenderness, Hyperactive Bowel Sounds. absent: Distended, Firm - Extremities Exam Extremities Exam: Normal Inspection. absent: Pedal Edema, Tenderness - Neurological Exam Neurological Exam: Alert, Awake, Oriented x3 - Psychiatric Exam Psychiatric exam: Normal Affect, Normal Mood - Skin Skin Exam: Intact, Normal Color, Warm Assessment and Plan - Assessment and Plan (Free Text) Assessment: Hypertensive Urgency, resolved likely due to withdrawal symptoms patient had episodes of hypotension after adding antihypertensive medications antihypertensive medications held Clonidine given for increased bp continue to monitor Polysubstance abuse Management per psychiatry patient refusing Methadone <Laura Brar V - Last Filed: 07/31/17 20:31> Objective - Vital Signs/Intake and Output Vital Signs (last 24 hours): Temp Pulse Resp BP Pulse Ox 98.6 F 68 18 134/82 97 07/31/17 15:18 07/31/17 15:18 07/31/17 15:18 07/31/17 17:35 07/31/17 18:24 Intake and Output: 07/31/17 08/01/17 18:59 06:59 Intake Total 700 Balance 700 - Medications Medications: Current Medications Al Hydrox/Mg Hydrox/Simethicone (Maalox 30 Ml) 30 ml PO TID PRN PRN Reason: Indigestion / Heartburn Cyclobenzaprine HCl (Flexeril) 5 mg PO TID REPLACED BY [facility] Last Admin: 07/31/17 17:15 Dose: 5 mg Dicyclomine HCl (Bentyl) 10 mg PO Q6 PRN PRN Reason: Muscle spasm Last Admin: 07/30/17 15:33 Dose: 10 mg Gabapentin (Neurontin) 300 mg PO TID REPLACED BY [facility] Last Admin: 07/31/17 17:15 Dose: 300 mg Hydroxyzine HCl (Atarax) 50 mg PO Q6H PRN PRN Reason: Anxiety Last Admin: 07/30/17 15:34 Dose: 50 mg Sodium Chloride (Sodium Chloride 0.9%) 1,000 mls @ 100 mls/hr IV .Q10H REPLACED BY [facility] Last Admin: 07/31/17 17:16 Dose: Not Given Loperamide HCl (Imodium) 2 mg PO Q8 PRN PRN Reason: Diarrhea Lorazepam (Ativan) 1 mg IM Q6H PRN PRN Reason: severe anxiety Last Admin: 07/30/17 08:33 Dose: 1 mg Methadone HCl (Methadone) 15 mg PO Q24H REPLACED BY [facility] PRN Reason: Taper Stop: 08/03/17 09:59 Last Admin: 07/31/17 09:47 Dose: Not Given Nicotine (Nicoderm Cq) 1 patch TD DAILY REPLACED BY [facility] Last Admin: 07/31/17 10:44 Dose: Not Given Ondansetron HCl (Zofran Tab) 4 mg PO Q6 PRN PRN Reason: Nausea/Vomiting Last Admin: 07/31/17 10:30 Dose: 4 mg Ondansetron HCl (Zofran Inj) 4 mg IM DAILY@ONCE PRN PRN Reason: Nausea/Vomiting Last Admin: 07/30/17 06:53 Dose: 4 mg Pantoprazole Sodium (Protonix Ec Tab) 40 mg PO DAILY REPLACED BY [facility] Last Admin: 07/31/17 09:44 Dose: 40 mg Trazodone HCl (Desyrel) 100 mg PO HS PRN PRN Reason: insomnia Last Admin: 07/30/17 01:35 Dose: 100 mg - Labs Labs: 07/31/17 02:06 07/31/17 07:28 Attending/Attestation - Attestation I have personally seen and examined this patient.: Yes I have fully participated in the care of the patient.: Yes I have reviewed all pertinent clinical information, including history, physical exam and plan: Yes Notes (Text): Patient seen, examined and case discussed with day-time resident. Patient seen this morning during rounds. Patient transferred out from [facility] following hypotension which required IV fluids. Patient is refusing methadone. Patient reports she would rather go cold-turkey. Will continue IV fluids. Patient refuses methadone and will give PRN clondine if needed. Nephrology on consult in light of acute renal insufficiency Assessment/Plan 1) Hypertensive Urgency Assessment/Plan * worsening by drug withdrawal, history of hypertension wherein she takes anti- hypertensives * will continue IV fluids * PRN clondine if SBP>160. * If blood pressure improves with fluids, will consider starting her back up on PO anti-hypertensives 2) Acute Renal insufficiency Assessment/Plan * improving with IV fluids * continue to monitor * Nephrology is on board 3) Polysubstance abuse Assessment/Plan * Management per psychiatry * patient refusing Methadone 4) Prophylactic measure * SCDS b/l * Pepcid 20mg PO bid
[2017-08-01] MEDS: Sodium Chloride 0.9% 1,000 ML IV SCH (02:32)
[2017-08-01] MEDS ORDERED: Sodium Chloride 0.9% 1,000 ML IV SCH (06:18)
--- NOTE | 2017-08-01 06:24 | CP.PCM.CON ---
History of Present Illness - History of Present Illness History of Present Illness: 47 yo F w/ pmh of htn, substance abuse (cocaine and heroin), presented for detox , found to have markedly labile BP and on repeat labs acute kidney injury for which nephrology is being consulted; Patient takes cozaar-hctz at home for high blood pressure; she otherwise doesn' t know of any history of kidney disease; denies any overt hematuria/cola colored urine; she denies any shortness of breath, chest pain/palpitations or leg swelling; she does try to adhere to low salt diet; On 2nd day of admission to detox, patient found to have markedy elevated BP (> 200/100); patient was continued on home BP meds as well as had losartan dose increased, started on hydralazine and given prn clonidine; ensuing BP later in the day dropped to as low as 68/42; patient was subsequently transferred to the medical floor and started on IVF; Patient currently reports nausea but no vomiting; is constipated; Review of Systems - Constitutional Constitutional: absent: Anorexia - EENT Eyes: absent: Change in Vision Nose/Mouth/Throat: absent: Sinus Pain Additional comments: seasonal allergies - Cardiovascular Cardiovascular: absent: Chest Pain, Palpitations - Respiratory Respiratory: absent: Dyspnea - Gastrointestinal Gastrointestinal: As Per HPI - Genitourinary Genitourinary: absent: Dysuria - Reproductive: Female Reproductive:Female: Menopausal - Musculoskeletal Musculoskeletal: Arthralgias Additional comments: chronic leg pain - Neurological Additional comments: intermittent vertigo Past Patient History - Past Medical History & Family History Past Medical History?: Yes Pertinent Family History: Mother with kidney disease, was not on dialysis; - Past Social History Smoking Status: Heavy Smoker > 10 Cigarettes Daily - CARDIAC Hx Hypertension: Yes - PULMONARY Hx Bronchitis: Yes (Hx.) - NEUROLOGICAL Hx Seizures: No (Denied) - HEENT Hx HEENT Problems: No - RENAL Hx Chronic Kidney Disease: No - ENDOCRINE/METABOLIC Hx Endocrine Disorders: No - HEMATOLOGICAL/ONCOLOGICAL Hx Human Immunodeficiency Virus (HIV): No - INTEGUMENTARY Hx Dermatological Problems: No - MUSCULOSKELETAL/RHEUMATOLOGICAL Hx Musculoskeletal Disorders: Yes (SEE COMMENT) Hx Falls: No Other/Comment: back problems - GASTROINTESTINAL Hx Gastrointestinal Disorders: No - GENITOURINARY/GYNECOLOGICAL Hx Sexually Transmitted Disorders: No - PSYCHIATRIC Hx Substance Use: Yes - SURGICAL HISTORY Hx Tonsillectomy: Yes - ANESTHESIA Hx Anesthesia: Yes Hx Anesthesia Reactions: No Hx Malignant Hyperthermia: No Meds Allergies/Adverse Reactions: Allergies Allergy/AdvReac Type Severity Reaction Status Date / Time Penicillins Allergy Severe ANGIOEDEMA Verified 07/28/17 16:51 - Medications Medications: Current Medications Al Hydrox/Mg Hydrox/Simethicone (Maalox 30 Ml) 30 ml PO TID PRN PRN Reason: Indigestion / Heartburn Clonidine HCl (Catapres) 0.1 mg PO Q8H PRN PRN Reason: Systolic Blood Pressure Cyclobenzaprine HCl (Flexeril) 5 mg PO TID [facility] Last Admin: 07/31/17 17:15 Dose: 5 mg Dicyclomine HCl (Bentyl) 10 mg PO Q6 PRN PRN Reason: Muscle spasm Last Admin: 07/30/17 15:33 Dose: 10 mg Famotidine (Pepcid) 20 mg PO DAILY [facility] Gabapentin (Neurontin) 300 mg PO TID [facility] Last Admin: 07/31/17 17:15 Dose: 300 mg Hydroxyzine HCl (Atarax) 50 mg PO Q6H PRN PRN Reason: Anxiety Last Admin: 07/31/17 22:11 Dose: 50 mg Sodium Chloride (Sodium Chloride 0.9%) 1,000 mls @ 40 mls/hr IV .Q24H [facility] Loperamide HCl (Imodium) 2 mg PO Q8 PRN PRN Reason: Diarrhea Lorazepam (Ativan) 1 mg IM Q6H PRN PRN Reason: severe anxiety Last Admin: 07/30/17 08:33 Dose: 1 mg Methadone HCl (Methadone) 15 mg PO Q24H [facility] PRN Reason: Taper Stop: 08/03/17 09:59 Last Admin: 07/31/17 09:47 Dose: Not Given Nicotine (Nicoderm Cq) 1 patch TD DAILY [facility] Last Admin: 07/31/17 10:44 Dose: Not Given Ondansetron HCl (Zofran Tab) 4 mg PO Q6 PRN PRN Reason: Nausea/Vomiting Last Admin: 07/31/17 10:30 Dose: 4 mg Ondansetron HCl (Zofran Inj) 4 mg IM DAILY@ONCE PRN PRN Reason: Nausea/Vomiting Last Admin: 07/30/17 06:53 Dose: 4 mg Pantoprazole Sodium (Protonix Ec Tab) 40 mg PO DAILY [facility] Last Admin: 07/31/17 09:44 Dose: 40 mg Trazodone HCl (Desyrel) 100 mg PO HS PRN PRN Reason: insomnia Last Admin: 08/01/17 02:30 Dose: 100 mg Physical Exam - Constitutional Appears: Non-toxic, No Acute Distress - Eye Exam Eye Exam: absent: Scleral icterus - ENT Exam ENT Exam: Mucous Membranes Moist - Respiratory Exam Respiratory Exam: Clear to Auscultation Bilateral. absent: Respiratory Distress - Cardiovascular Exam Cardiovascular Exam: RRR, +S1, +S2. absent: JVD - GI/Abdominal Exam GI & Abdominal Exam: Hyperactive Bowel Sounds, Soft. absent: Distended, Tenderness - Exam Exam: absent: Bladder Distension Additional comments: no CVA tenderness - Extremities Exam Additional comments: no leg edema; - Neurological Exam Neurological exam: Alert, Oriented x3 - Psychiatric Exam Psychiatric exam: Normal Affect, Normal Mood - Skin Skin Exam: Normal Color, Warm Results - Vital Signs Recent Vital Signs: Last Vital Signs Temp 98.3 F 08/01/17 01:05 Pulse 65 08/01/17 05:58 Resp 20 08/01/17 01:05 BP 214/93 H 08/01/17 05:58 Pulse Ox 95 08/01/17 01:05 - Labs Result Diagrams: 07/31/17 02:06 07/31/17 07:28 Labs: Laboratory Results - last 24 hr 07/31/17 07/31/17 07:28 11:15 Sodium 141 Potassium 3.8 Chloride 104 Carbon Dioxide 24 Anion Gap 17 BUN 19 H Creatinine 1.8 H Est GFR ( Amer) 36 Est GFR (Non-Af Amer) 30 Random Glucose 94 Calcium 8.4 L Total Bilirubin 1.0 AST 51 H D ALT 21 Alkaline Phosphatase 77 Total Protein 7.2 Albumin 4.1 Globulin 3.1 Albumin/Globulin Ratio 1.3 25-OH Vitamin D Total 26.6 L Assessment & Plan (1) Acute kidney injury Assessment and Plan: History consistent with normotensive ATN in the setting of rapid decrease in BP along with loss of renal autoregulation due to being on ARB and NSAID (single dose given on 07/30/17); repeat labs showing some improvement in renal function; stable electrolyte and volume status; -Agree with IVF -Avoid sudden drops in BP; recommend to avoid dropping SBP < 140's for now; -Continue to hold ARB; -Avoid all NSAIDS -Renal US; Status: Acute (2) Hypertension Assessment and Plan: Labile BP in the setting of opiate detox; BP meds currently being held; -can use prn clonidine 0.1 mg q8h for SBP > 180; -will restart losartan slowly once renal function closer to baseline; Status: Acute (3) Proteinuria Assessment and Plan: 1+ albuminuria along with hematuria that is concerning for underlying intrinsic kidney disease despite relatively preserved eGFR at [facility]; findings seen on previous UA as well; no other overt extra-renal manifestations elicited from patient history; -obtaining detailed serologic workup (complements, hep C Ab, TESFAYE, ANCA, RPR, serum free light chains, SPEP, serum immunofixation); -obtaining random urine for protein, microalbumin and creatinine; -may benefit from renal biopsy as outpatient; Status: Chronic (4) Hematuria Assessment and Plan: Along with proteinuria is suggestive of intrinsic renal disease; however, cannot rule out tract lesion; -renal US -obtain urine for cytology Status: Chronic
[2017-08-01] MEDS ORDERED: Naloxone 0.4 mg/ml Inj (Adult) ONE (07:10)
--- NOTE | 2017-08-01 07:24 | PCM.RRT ---
<Richa Patterson Roberto - Last Filed: 08/01/17 07:20> RN CLINICAL TRIALS Nurses Assessment - Situation Date: 08/01/17 Time RN CLINICAL TRIALS was called: 07:00 RN CLINICAL TRIALS Responder Arrival Time:: 07:00 RN CLINICAL TRIALS Location:: Med/Surg Room Number: 664A RN CLINICAL TRIALS Reason for Call: Hypertension, Change in Mental Status, Looks Sicker RN CLINICAL TRIALS Called By: Physician - IV IV Inserted during RN CLINICAL TRIALS?: No New IV Insertion Tolerance: Excellent - Respiratory RN CLINICAL TRIALS Delivery Method: Room Air Received Nebulizer Treatments: No Was the Patient Ventilated with Bag/Mask 100% O2?: No Secretions Suctioned?: No Was the Patient Intubated?: No - Diagnostic Test Ordered EKG: No Chest X-Ray: No CT Scan: No - Stat Labs Ordered RN CLINICAL TRIALS Stat Labs Ordered: CBC, BMP CPR started during RN CLINICAL TRIALS?: No - Vital Signs Vital Signs: Rapid Response Vital Sign Blood Pressure 188/85 Pulse Rate 95 Respiratory Rate 20 Temperature 98 F Oxygen Saturation 99 - Time RN CLINICAL TRIALS Ended Time RN CLINICAL TRIALS Ended: 07:13 - Vital Signs at end of RN CLINICAL TRIALS Vital Signs at end of RN CLINICAL TRIALS: Rapid Response End Vital Sign Blood Pressure 165/83 Pulse Rate 72 Respiratory Rate 20 Temperature 98.2 F O2 Sat by Pulse Oximetry 100 - Recommendations Notifications: Attending Physician I.Reason for RN CLINICAL TRIALS - A) Acute Change in Patient: (Select all that apply): Staff member or family is worried about patient - Neurological Status (Select all that apply): Disoriented, Lethargic - Respiratory Oxygen Delivery Method: Room Air - Constitutional Appears: Non-toxic, Confused - Head Head Exam: ATRAUMATIC, NORMAL INSPECTION, NORMOCEPHALIC - Eyes Eye Exam: EOMI, Normal appearance - Respiratory Exam Respiratory Exam: Clear to Ausculation Bilateral, NORMAL BREATHING PATTERN - Cardiovascular Exam Cardiovascular Exam: REGULAR RHYTHM, RRR, +S1, +S2 - GI/Abdominal Exam GI & Abdominal Exam: Soft, Normal Bowel Sounds. absent: Tenderness - Neurological Exam Neurological Exam: Alert, Awake - Extremities Exam Extremities Exam: Normal Inspection. absent: Pedal Edema, Tenderness Plan - Assessment of Findings&Treatment Plan Patient seen and examined this morning at bedside. Patient complaining of bad headache when all of a sudden she started having seizure activity with full body shaking in the bed. Seizure lasted about 30 seconds. Patient had a post ictal period. She was awake, but not able to tell me where she was for a few minutes. When patient became oriented she explained that she has had seizures in the past from withdrawal. Patient has never been on seizure medications. Head CT without contrast ordered and ativan PRN ordered. VS at the end of rapid: 165/83 HR: 95 <Laura Brar V - Last Filed: 08/01/17 07:36> RN CLINICAL TRIALS Nurses Assessment - Vital Signs Vital Signs: Rapid Response Vital Sign Blood Pressure 188/85 Pulse Rate 95 Respiratory Rate 20 Temperature 98 F Oxygen Saturation 99 - Vital Signs at end of RN CLINICAL TRIALS Vital Signs at end of RN CLINICAL TRIALS: Rapid Response End Vital Sign Blood Pressure 165/83 Pulse Rate 72 Respiratory Rate 20 Temperature 98.2 F O2 Sat by Pulse Oximetry 100 Attending/Attestation - Attestation I have personally seen and examined this patient.: Yes I have fully participated in the care of the patient.: Yes I have reviewed all pertinent clinical information, including history, physical exam and plan: Yes Notes (Text): Responded to RN CLINICAL TRIALS for witnessed seizure. Patient see at bedside. Witnessed seizure by the resident. Patient was post- icital for few seconds. Patient started speaking, crying, and afraid of the seizure that just happened. Patient reported she does have a history of seizures. Patient reported first seizure happened after her back surgery. She reports she has never been on medication to control seizures but she does admit to seizures as she is withdrawal from drugs. Patient did not have any visitors overnight and confirmed by nursing staff. We will order CT head stat w/o contrast in light of seizure to rule out any acute pathology. Patient's sugar was check and appropriately. Patient had initially refused morning blood work; but will allow for blood work to be collected. Neurochecks Q4H. Seizure precautions. Ativan PRN for seizure. Patient adamantly refuses methadone or any alternative for her drug withdrawals. Blood pressure improved. She had received Clonidine 30 min prior to RN CLINICAL TRIALS called for elevated SBP>180s. We will be rounding on her later today for any further recommendations.
[2017-08-01 08:08] LABS: BASO # 0.1 K/uL (0.0-0.2); BASO % 1.3 % (0.0-2.0); EOS # 0.1 K/uL (0.0-0.7); EOS % 1.2 % (0.0-4.0); HEMOGLOBIN 17.3 g/dL (11.0-16.0); LYMPH # 2.3 K/uL (1.0-4.3); LYMPH % 40.4 % (20.0-40.0); MEAN CELL VOLUME 91.9 fL (81.0-99.0); MEAN CORPUSCULAR HEMOGLOBIN 31.9 pg (27.0-31.0); MEAN CORPUSCULAR HGB CONC 34.7 g/dL (33.0-37.0); MEAN PLATELET VOLUME 9.9 fL (7.2-11.7); MONO # 0.4 K/uL (0.0-0.8); MONO % 6.2 % (0.0-10.0); NEUT # 2.9 K/uL (1.8-7.0); NEUT % 50.9 % (50.0-75.0); NRBC % 0.1 % (0.0-2.0); RBC 5.41 Mil/uL (3.80-5.20); RED CELL DISTRIBUTION WIDTH 13.9 % (11.5-14.5); WHITE BLOOD COUNT 5.7 K/uL (4.8-10.8)
[2017-08-01 08:28] LABS: ALB/GLOB RATIO 1.4 (1.0-2.1); ALBUMIN 4.5 g/dL (3.5-5.0); ALT/SGPT 28 U/L (9-52); AST/SGOT 26 U/L (14-36); BLOOD UREA NITROGEN 12 mg/dL (7-17); CALCIUM 9.2 mg/dl (8.6-10.4); GFR AFRICAN-AMERICAN > 60; GFR NON-AFRICAN AMERICAN > 60
--- NOTE | 2017-08-01 08:30 | CT ---
PROCEDURE: CT HEAD WITHOUT CONTRAST. HISTORY: s/p seizure COMPARISON: None available. TECHNIQUE: Axial computed tomography images were obtained through the head/brain without intravenous contrast. Radiation dose: Total exam DLP = 1009 mGy-cm. This CT exam was performed using one or more of the following dose reduction techniques: Automated exposure control, adjustment of the mA and/or kV according to patient size, and/or use of iterative reconstruction technique. FINDINGS: HEMORRHAGE: No intracranial hemorrhage. BRAIN: No mass effect or edema. No atrophy or chronic microvascular ischemic changes. VENTRICLES: Unremarkable. No hydrocephalus. CALVARIUM: Unremarkable. PARANASAL SINUSES: Ethmoidal sinus mild inflammatory/mucosal thickening changes MASTOID AIR CELLS: Unremarkable as visualized. No inflammatory changes. OTHER FINDINGS: None. IMPRESSION: No intracranial hemorrhage or mass effect Mild chronic appearing ethmoidal sinus mucosal thickening/ inflammatory change
[2017-08-01 08:59] LABS: HEPATITIS B SURFACE AG Negative (NEGATIVE)
[2017-08-01] MEDS ORDERED: Bisacodyl 5mg EC Tab PO ONE (09:33)
[2017-08-01] MEDS: Pantoprazole 40 mg EC Tab PO SCH (09:37)
[2017-08-01] MEDS ORDERED: Magnesium Sulfate 1 gm in D5W 1 GM/100 ML BAG IVPB SCH (09:45)
[2017-08-01] MEDS ORDERED: Potassium Chloride 20 mEq ER Tab PO SCH (10:00)
--- NOTE | 2017-08-01 12:48 | PCM.PYCHPN ---
Psychiatric Progress Note - Psychiatric Progress Note Patient seen today, length of contact: 16 min Patient Chief Complaint: "I had a seizure" Problems Identified/Issues Discussed: The pt is seen, chart reviewed, case discussed with staff. Support and psychoeducation given Improving slowly and needs more time She took the methadone today And she had a"mild seizure" she claims No SEs from medications, risks discussed. After care discussed - she may go to [facility] in [place] Medication Change: Yes (detox changes daily) Medical Record Reviewed: Yes Mental Status Examination - Cognitive Function Orientation: Person, Place, Situation, Time Memory: Impaired Attention: Poor Concentration: Poor Association: WNL Fund of Knowledge: Poor - Mood Mood: Anxious - Affect Affect: Constricted - Speech Speech: Appropriate - Formal Thought Process Formal Thought Process: No Impairment - Suicidal Ideation Suicidal Ideation: No - Homicidal Ideation Homicidal Ideation: No Goal/Treatment Plan - Goal/Treatment Plan Need for Continued Stay: Other (medical) Progress Toward Problem(s) and Goals/Treatment Plan: Taper with methadone Gabapentin for augmentation if needed As needed medications All risks, benefits and alternatives of the meds discussed, and the pt agreed and understood. Supportive therapy and psychoeducation ND for abstinence Encourage MAT Refer to rehab or IOP, and self-help groups Smoking cessation with ND Nicotine patch if needed
--- NOTE | 2017-08-01 15:39 | US ---
PROCEDURE: Ultrasound of the Kidneys HISTORY: acute renal failure COMPARISON: None available. TECHNIQUE: Sonogram of the kidneys. FINDINGS: RIGHT KIDNEY: Measures: 4.8 x 5 x 9.8 cm. Normal in size, contour and echogenicity. No stone, solid mass lesion or hydronephrosis visualized. LEFT KIDNEY: Measures: 5.6 x 4.6 x 10.2 cm. Normal in size, contour and echogenicity. No stone, solid mass lesion or hydronephrosis visualized. OTHER FINDINGS: None. IMPRESSION: Unremarkable renal sonogram.
--- NOTE | 2017-08-01 16:11 | CP.PCM.PN ---
<Richa Patterson - Last Filed: 08/01/17 16:06> Subjective - Date & Time of Evaluation Date of Evaluation: 08/01/17 Time of Evaluation: 07:00 - Subjective Subjective: PGY2- Medicine Note for Dr. Brar Patient seen and examined at bedside and in no acute distress. Patient complaining of a bad headache. Patient then became non responsive and started shaking. MOU[employer] was called. Patient's seizure lasted about 30sec-1 min. Patient had a few minutes of post-ictal period. Patient was re-assessed later in the morning and admitted that she has had seizures prior unrelated to withdrawal about 2 years ago after having back surgery. Patient has never been on medications for seizures. Patient admits to having a frontal headache. Patient is anxious about having another seizure. Patient still has not had a bowel movement. Patient denies chest pain, shortness of breath, abdominal pain. Objective - Vital Signs/Intake and Output Vital Signs (last 24 hours): Temp Pulse Resp BP Pulse Ox 98.9 F 64 20 187/102 H 97 08/01/17 09:23 08/01/17 12:07 08/01/17 09:23 08/01/17 09:23 08/01/17 09:23 Intake and Output: 08/01/17 08/01/17 06:59 18:59 Intake Total 500 Balance 500 - Medications Medications: Current Medications Al Hydrox/Mg Hydrox/Simethicone (Maalox 30 Ml) 30 ml PO TID PRN PRN Reason: Indigestion / Heartburn Clonidine HCl (Catapres) 0.1 mg PO Q8H PRN PRN Reason: Systolic Blood Pressure Last Admin: 08/01/17 06:30 Dose: 0.1 mg Cyclobenzaprine HCl (Flexeril) 5 mg PO TID [facility] Last Admin: 08/01/17 13:28 Dose: 5 mg Dicyclomine HCl (Bentyl) 10 mg PO Q6 PRN PRN Reason: Muscle spasm Last Admin: 07/30/17 15:33 Dose: 10 mg Famotidine (Pepcid) 20 mg PO DAILY [facility] Last Admin: 08/01/17 09:37 Dose: 20 mg Gabapentin (Neurontin) 300 mg PO TID [facility] Last Admin: 08/01/17 13:28 Dose: 300 mg Hydroxyzine HCl (Atarax) 50 mg PO Q6H PRN PRN Reason: Anxiety Last Admin: 07/31/17 22:11 Dose: 50 mg Loperamide HCl (Imodium) 2 mg PO Q8 PRN PRN Reason: Diarrhea Lorazepam (Ativan) 1 mg IVP Q4H PRN PRN Reason: Seizure activity Losartan Potassium (Cozaar) 50 mg PO DAILY [facility] Methadone HCl (Methadone) 10 mg PO Q24H [facility] PRN Reason: Taper Stop: 08/03/17 09:59 Last Admin: 08/01/17 10:10 Dose: 10 mg Nicotine (Nicoderm Cq) 1 patch TD DAILY [facility] Last Admin: 08/01/17 09:30 Dose: Not Given Ondansetron HCl (Zofran Tab) 4 mg PO Q6 PRN PRN Reason: Nausea/Vomiting Last Admin: 07/31/17 10:30 Dose: 4 mg Ondansetron HCl (Zofran Inj) 4 mg IVP Q6H PRN PRN Reason: Nausea/Vomiting Pantoprazole Sodium (Protonix Ec Tab) 40 mg PO DAILY [facility] Last Admin: 08/01/17 09:37 Dose: 40 mg Potassium Chloride (K-Dur 20 Meq Er Tab) 40 meq PO DAILY [facility] Last Admin: 08/01/17 09:37 Dose: 40 meq Trazodone HCl (Desyrel) 100 mg PO HS PRN PRN Reason: insomnia Last Admin: 08/01/17 02:30 Dose: 100 mg - Labs Labs: 08/01/17 07:55 08/01/17 07:55 - Additional Findings Additional findings: - Constitutional Appears: Non-toxic, No Acute Distress - Head Exam Head Exam: ATRAUMATIC, NORMAL INSPECTION, NORMOCEPHALIC - Eye Exam Eye Exam: EOMI, Normal appearance - ENT Exam ENT Exam: Mucous Membranes Moist - Respiratory Exam Respiratory Exam: Clear to Ausculation Bilateral, NORMAL BREATHING PATTERN - Cardiovascular Exam Cardiovascular Exam: REGULAR RHYTHM, RRR, +S1, +S2 - GI/Abdominal Exam GI & Abdominal Exam: Soft, Tenderness, Hyperactive Bowel Sounds. absent: Distended, Firm - Extremities Exam Extremities Exam: Normal Inspection. absent: Pedal Edema, Tenderness - Neurological Exam Neurological Exam: Alert, Awake, Oriented x3 - Psychiatric Exam Psychiatric exam: Normal Affect, Normal Mood - Skin Skin Exam: Intact, Normal Color, Warm Assessment and Plan - Assessment and Plan (Free Text) Assessment: Hypertensive Urgency, resolved likely due to withdrawal symptoms patient had episodes of hypotension after adding antihypertensive medications antihypertensive medications held Clonidine given for increased bp Losartan 50mg po daily started on 08/01 continue to monitor Polysubstance abuse Management per psychiatry patient refusing Methadone Seizure witnessed seizure on 08/[address]: no intracranial hemorrhage, ethmoidal sinus thickening Neurology, Dr. Puri, consulted, help appreciated PRINCE, resolved BUN/ Cr: 12/.9 on 08/01 down from 18/2.1 on 07/31 Neuro, Dr. Estrella consulted as per Dr. Estrella most likely normotensive ATN in the setting of rapidly decreasing BP avoid drops in SBP< 140s avoid NSAID renal US: unremarkable Proteinuria f/u complements, hep C ab, TESFAYE, ANCA, RPR, serum free light chains, SPEP, serum immunofixation f/u random urine for protein, microalbumin, creatinine Electrolyte Abnormalities Potassium 3.3, KDUR 40 meq Magnesium 1.7, Mg sulfate 1 g given Constipation Dulcolax 5mg given monitor Prophylaxis Pepcid 20mg po daily [facility] <Laura Brar V - Last Filed: 08/01/17 22:55> Objective - Vital Signs/Intake and Output Vital Signs (last 24 hours): Temp Pulse Resp BP Pulse Ox 98.1 F 74 20 121/76 98 08/01/17 15:00 08/01/17 15:00 08/01/17 15:00 08/01/17 15:00 08/01/17 15:00 Intake and Output: 08/01/17 08/01/17 06:59 18:59 Intake Total 500 Balance 500 - Medications Medications: Current Medications Al Hydrox/Mg Hydrox/Simethicone (Maalox 30 Ml) 30 ml PO TID PRN PRN Reason: Indigestion / Heartburn Clonidine HCl (Catapres) 0.1 mg PO Q8H PRN PRN Reason: Systolic Blood Pressure Last Admin: 08/01/17 06:30 Dose: 0.1 mg Cyclobenzaprine HCl (Flexeril) 5 mg PO TID [facility] Last Admin: 08/01/17 13:28 Dose: 5 mg Dicyclomine HCl (Bentyl) 10 mg PO Q6 PRN PRN Reason: Muscle spasm Last Admin: 07/30/17 15:33 Dose: 10 mg Famotidine (Pepcid) 20 mg PO DAILY [facility] Last Admin: 08/01/17 09:37 Dose: 20 mg Gabapentin (Neurontin) 300 mg PO TID [facility] Last Admin: 08/01/17 13:28 Dose: 300 mg Hydroxyzine HCl (Atarax) 50 mg PO Q6H PRN PRN Reason: Anxiety Last Admin: 07/31/17 22:11 Dose: 50 mg Lorazepam (Ativan) 1 mg IVP Q4H PRN PRN Reason: Seizure activity Losartan Potassium (Cozaar) 50 mg PO DAILY [facility] Methadone HCl (Methadone) 10 mg PO Q24H [facility] PRN Reason: Taper Stop: 08/03/17 09:59 Last Admin: 08/01/17 10:10 Dose: 10 mg Nicotine (Nicoderm Cq) 1 patch TD DAILY [facility] Last Admin: 08/01/17 09:30 Dose: Not Given Ondansetron HCl (Zofran Tab) 4 mg PO Q6 PRN PRN Reason: Nausea/Vomiting Last Admin: 07/31/17 10:30 Dose: 4 mg Ondansetron HCl (Zofran Inj) 4 mg IVP Q6H PRN PRN Reason: Nausea/Vomiting Pantoprazole Sodium (Protonix Ec Tab) 40 mg PO DAILY [facility] Last Admin: 08/01/17 09:37 Dose: 40 mg Trazodone HCl (Desyrel) 100 mg PO HS PRN PRN Reason: insomnia Last Admin: 08/01/17 02:30 Dose: 100 mg - Labs Labs: 08/01/17 07:55 08/01/17 07:55 Attending/Attestation - Attestation I have personally seen and examined this patient.: Yes I have fully participated in the care of the patient.: Yes I have reviewed all pertinent clinical information, including history, physical exam and plan: Yes Notes (Text): Patient seen, examined, and case discussed with day-time resident. Please note details of rapid response this morning for possible seizure activity. Patient is amenable to methadone taper by psychiatry when they saw her this morning. Patient continues to be on Clonidine PRN SBP>180, given dose of Losartan 50mg PO X1 to help to control blood pressure Renal function has normalized; will f/u with nephrology. Neurology consult in light of hx of seizures, possible seizure secondary to polysubstance withdrawal Assessment/Plan 1) Hypertensive Urgency Assessment/Plan * worsening by drug withdrawal, history of hypertension wherein she takes anti- hypertensives * will continue IV fluids * PRN clondine if SBP>180. * Will coordinate with nephrology with anti-hypertensive medications 2) Acute Renal insufficiency Assessment/Plan * improving with IV fluids * continue to monitor * Nephrology is on board-->help appreciated * Renal US: unremarkable 3) Polysubstance abuse Assessment/Plan * Management per psychiatry * patient refusing Methadone yesterday; allowed for methadone today 4) Prophylactic measure * SCDS b/l * Pepcid 20mg PO bid
[2017-08-01 17:03] LABS: RAPID PLASMA REAGIN NONREACTIVE (NONREACTIVE)
--- NOTE | 2017-08-01 19:26 | CP.PCM.PN ---
Objective - Vital Signs/Intake and Output Vital Signs (last 24 hours): Temp Pulse Resp BP Pulse Ox 98.1 F 74 20 121/76 98 08/01/17 15:00 08/01/17 15:00 08/01/17 15:00 08/01/17 15:00 08/01/17 15:00 Intake and Output: 08/01/1718 18:59 06:59 Intake Total 500 Balance 500 - Medications Medications: Current Medications Al Hydrox/Mg Hydrox/Simethicone (Maalox 30 Ml) 30 ml PO TID PRN PRN Reason: Indigestion / Heartburn Clonidine HCl (Catapres) 0.1 mg PO Q8H PRN PRN Reason: Systolic Blood Pressure Last Admin: 08/01/17 06:30 Dose: 0.1 mg Cyclobenzaprine HCl (Flexeril) 5 mg PO TID [facility] Last Admin: 08/01/17 18:07 Dose: 5 mg Dicyclomine HCl (Bentyl) 10 mg PO Q6 PRN PRN Reason: Muscle spasm Last Admin: 07/30/17 15:33 Dose: 10 mg Famotidine (Pepcid) 20 mg PO DAILY [facility] Last Admin: 08/01/17 09:37 Dose: 20 mg Gabapentin (Neurontin) 300 mg PO TID [facility] Last Admin: 08/01/17 18:07 Dose: 300 mg Hydroxyzine HCl (Atarax) 50 mg PO Q6H PRN PRN Reason: Anxiety Last Admin: 07/31/17 22:11 Dose: 50 mg Lorazepam (Ativan) 1 mg IVP Q4H PRN PRN Reason: Seizure activity Losartan Potassium (Cozaar) 50 mg PO DAILY [facility] Methadone HCl (Methadone) 10 mg PO Q24H [facility] PRN Reason: Taper Stop: 08/03/17 09:59 Last Admin: 08/01/17 10:10 Dose: 10 mg Nicotine (Nicoderm Cq) 1 patch TD DAILY [facility] Last Admin: 08/01/17 09:30 Dose: Not Given Ondansetron HCl (Zofran Tab) 4 mg PO Q6 PRN PRN Reason: Nausea/Vomiting Last Admin: 07/31/17 10:30 Dose: 4 mg Ondansetron HCl (Zofran Inj) 4 mg IVP Q6H PRN PRN Reason: Nausea/Vomiting Last Admin: 08/01/17 19:13 Dose: 4 mg Pantoprazole Sodium (Protonix Ec Tab) 40 mg PO DAILY [facility] Last Admin: 08/01/17 09:37 Dose: 40 mg Trazodone HCl (Desyrel) 100 mg PO HS PRN PRN Reason: insomnia Last Admin: 08/01/17 02:30 Dose: 100 mg - Labs Labs: 08/01/17 07:55 08/01/17 07:55 Assessment and Plan (1) Acute kidney injury Status: Acute (2) Hypertension Status: Acute (3) Proteinuria Status: Chronic (4) Hematuria Status: Chronic
--- NOTE | 2017-08-01 20:02 | CP.PCM.CON ---
History of Present Illness - History of Present Illness History of Present Illness: 47 yr old woman who complained of seizure earlier today. MIss saldana says she doesnt have a history of epilepsy but had a couple seizures after her back surgery several years ago. She is not able to give me a history of aura, but just says she was shaking. There is no history of stroke or head trauma. PMH/PSH: polysubstance abuse., htn FH/SH: as above, unemployed. ALL:nkda. on exam: Normal neurological examination. Al Hydrox/Mg Hydrox/Simethicone (Maalox 30 Ml) 30 ml PO TID PRN PRN Reason: Indigestion / Heartburn Cyclobenzaprine HCl (Flexeril) 5 mg PO TID [facility] Last Admin: 07/31/17 13:37 Dose: 5 mg Dicyclomine HCl (Bentyl) 10 mg PO Q6 PRN PRN Reason: Muscle spasm Last Admin: 07/30/17 15:33 Dose: 10 mg Gabapentin (Neurontin) 300 mg PO TID [facility] Last Admin: 07/31/17 13:37 Dose: 300 mg Hydroxyzine HCl (Atarax) 50 mg PO Q6H PRN PRN Reason: Anxiety Last Admin: 07/30/17 15:34 Dose: 50 mg Sodium Chloride (Sodium Chloride 0.9%) 1,000 mls @ 100 mls/hr IV .Q10H [facility] Last Admin: 07/31/17 06:59 Dose: 100 mls/hr Loperamide HCl (Imodium) 2 mg PO Q8 PRN PRN Reason: Diarrhea Lorazepam (Ativan) 1 mg IM Q6H PRN PRN Reason: severe anxiety Last Admin: 07/30/17 08:33 Dose: 1 mg Methadone HCl (Methadone) 15 mg PO Q24H [facility] PRN Reason: Taper Stop: 08/03/17 09:59 Last Admin: 07/31/17 09:47 Dose: Not Given Nicotine (Nicoderm Cq) 1 patch TD DAILY [facility] Last Admin: 07/31/17 10:44 Dose: Not Given Ondansetron HCl (Zofran Tab) 4 mg PO Q6 PRN PRN Reason: Nausea/Vomiting Last Admin: 07/31/17 10:30 Dose: 4 mg Ondansetron HCl (Zofran Inj) 4 mg IM DAILY@ONCE PRN PRN Reason: Nausea/Vomiting Last Admin: 07/30/17 06:53 Dose: 4 mg Pantoprazole Sodium (Protonix Ec Tab) 40 mg PO DAILY [facility] Last Admin: 07/31/17 09:44 Dose: 40 mg Trazodone HCl (Desyrel) 100 mg PO HS PRN PRN Reason: insomnia Last Admin: 07/30/17 01:35 Dose: 100 mg Past Patient History - Past Medical History & Family History Past Medical History?: Yes - Past Social History Smoking Status: Heavy Smoker > 10 Cigarettes Daily - CARDIAC Hx Hypertension: Yes - PULMONARY Hx Bronchitis: Yes (Hx.) - NEUROLOGICAL Hx Seizures: No (Denied) - HEENT Hx HEENT Problems: No - RENAL Hx Chronic Kidney Disease: No - ENDOCRINE/METABOLIC Hx Endocrine Disorders: No - HEMATOLOGICAL/ONCOLOGICAL Hx Human Immunodeficiency Virus (HIV): No - INTEGUMENTARY Hx Dermatological Problems: No - MUSCULOSKELETAL/RHEUMATOLOGICAL Hx Musculoskeletal Disorders: Yes (SEE COMMENT) Hx Falls: No Other/Comment: back problems - GASTROINTESTINAL Hx Gastrointestinal Disorders: No - GENITOURINARY/GYNECOLOGICAL Hx Sexually Transmitted Disorders: No - PSYCHIATRIC Hx Substance Use: Yes - SURGICAL HISTORY Hx Tonsillectomy: Yes - ANESTHESIA Hx Anesthesia: Yes Hx Anesthesia Reactions: No Hx Malignant Hyperthermia: No Meds Allergies/Adverse Reactions: Allergies Allergy/AdvReac Type Severity Reaction Status Date / Time Penicillins Allergy Severe ANGIOEDEMA Verified 07/28/17 16:51 - Medications Medications: Current Medications Al Hydrox/Mg Hydrox/Simethicone (Maalox 30 Ml) 30 ml PO TID PRN PRN Reason: Indigestion / Heartburn Clonidine HCl (Catapres) 0.1 mg PO Q8H PRN PRN Reason: Systolic Blood Pressure Last Admin: 08/01/17 06:30 Dose: 0.1 mg Cyclobenzaprine HCl (Flexeril) 5 mg PO TID [facility] Last Admin: 08/01/17 18:07 Dose: 5 mg Dicyclomine HCl (Bentyl) 10 mg PO Q6 PRN PRN Reason: Muscle spasm Last Admin: 07/30/17 15:33 Dose: 10 mg Famotidine (Pepcid) 20 mg PO DAILY [facility] Last Admin: 08/01/17 09:37 Dose: 20 mg Gabapentin (Neurontin) 300 mg PO TID [facility] Last Admin: 08/01/17 18:07 Dose: 300 mg Hydroxyzine HCl (Atarax) 50 mg PO Q6H PRN PRN Reason: Anxiety Last Admin: 07/31/17 22:11 Dose: 50 mg Lorazepam (Ativan) 1 mg IVP Q4H PRN PRN Reason: Seizure activity Losartan Potassium (Cozaar) 25 mg PO DAILY [facility] Methadone HCl (Methadone) 10 mg PO Q24H [facility] PRN Reason: Taper Stop: 08/03/17 09:59 Last Admin: 08/01/17 10:10 Dose: 10 mg Nicotine (Nicoderm Cq) 1 patch TD DAILY [facility] Last Admin: 08/01/17 09:30 Dose: Not Given Ondansetron HCl (Zofran Tab) 4 mg PO Q6 PRN PRN Reason: Nausea/Vomiting Last Admin: 07/31/17 10:30 Dose: 4 mg Ondansetron HCl (Zofran Inj) 4 mg IVP Q6H PRN PRN Reason: Nausea/Vomiting Last Admin: 08/01/17 19:13 Dose: 4 mg Pantoprazole Sodium (Protonix Ec Tab) 40 mg PO DAILY [facility] Last Admin: 08/01/17 09:37 Dose: 40 mg Trazodone HCl (Desyrel) 100 mg PO HS PRN PRN Reason: insomnia Last Admin: 08/01/17 02:30 Dose: 100 mg Results - Vital Signs Recent Vital Signs: Last Vital Signs Temp 98.1 F 08/01/17 15:00 Pulse 74 08/01/17 15:00 Resp 20 08/01/17 15:00 BP 121/76 08/01/17 15:00 Pulse Ox 98 08/01/17 15:00 - Labs Result Diagrams: 08/02/17 07:23 08/02/17 07:23 Labs: Laboratory Results - last 24 hr 08/01/17 08/01/17 08/01/17 07:06 07:55 07:55 WBC 5.7 RBC 5.41 H Hgb 17.3 H Hct 49.7 H MCV 91.9 MCH 31.9 H MCHC 34.7 RDW 13.9 Plt Count 267 MPV 9.9 Neut % (Auto) 50.9 Lymph % (Auto) 40.4 H Person % (Auto) 6.2 Eos % (Auto) 1.2 Baso % (Auto) 1.3 Neut # (Auto) 2.9 Lymph # (Auto) 2.3 Person # (Auto) 0.4 Eos # (Auto) 0.1 Baso # (Auto) 0.1 Sodium 139 Potassium 3.3 L Chloride 104 Carbon Dioxide 24 Anion Gap 15 BUN 12 Creatinine 0.9 Est GFR ( Amer) > 60 Est GFR (Non-Af Amer) > 60 POC Glucose (mg/dL) 113 H Random Glucose 111 H Calcium 9.2 Phosphorus 2.8 Magnesium 1.7 Total Bilirubin 0.9 AST 26 ALT 28 Alkaline Phosphatase 92 Total Protein 7.7 Albumin 4.5 Globulin 3.2 Albumin/Globulin Ratio 1.4 RPR Hep Bs Antigen Negative Hep Bs Antibody 08/01/17 08/01/17 07:55 07:55 WBC RBC Hgb Hct MCV MCH MCHC RDW Plt Count MPV Neut % (Auto) Lymph % (Auto) Person % (Auto) Eos % (Auto) Baso % (Auto) Neut # (Auto) Lymph # (Auto) Person # (Auto) Eos # (Auto) Baso # (Auto) Sodium Potassium Chloride Carbon Dioxide Anion Gap BUN Creatinine Est GFR ( Amer) Est GFR (Non-Af Amer) POC Glucose (mg/dL) Random Glucose Calcium Phosphorus Magnesium Total Bilirubin AST ALT Alkaline Phosphatase Total Protein Albumin Globulin Albumin/Globulin Ratio RPR Nonreactive Hep Bs Antigen Hep Bs Antibody Positive - Imaging and Cardiology CT scan - head Status: Image reviewed by me, Report reviewed by me (cthead normal. ) Assessment & Plan - Assessment and Plan (Free Text) Assessment: 47 yr old woman with polysubstance use, and unclear history of epilepsy. I am not convinced that these are true epileptic seizures, but may be non epileptic events. Plan: 1. EEG 2. If above is normal, no aeds. Thank you Dr. arvizu
[2017-08-02 02:07] LABS: BARBITURATES, UR NEGATIVE (NEGATIVE); BENZODIAZEPINES, UR NEGATIVE (NEGATIVE); PHENCYCLIDINE, UR NEGATIVE (NEGATIVE)
[2017-08-02 02:09] LABS: OPIATES, UR POSITIVE (NEGATIVE)
[2017-08-02 07:35] LABS: BASO # 0.1 K/uL (0.0-0.2); BASO % 1.3 % (0.0-2.0); EOS # 0.1 K/uL (0.0-0.7); EOS % 1.8 % (0.0-4.0); HEMOGLOBIN 15.5 g/dL (11.0-16.0); LYMPH # 3.3 K/uL (1.0-4.3); LYMPH % 58.8 % (20.0-40.0); MEAN CELL VOLUME 92.3 fL (81.0-99.0); MEAN CORPUSCULAR HEMOGLOBIN 31.1 pg (27.0-31.0); MEAN CORPUSCULAR HGB CONC 33.7 g/dL (33.0-37.0); MEAN PLATELET VOLUME 9.3 fL (7.2-11.7); MONO # 0.4 K/uL (0.0-0.8); NEUT # 1.7 K/uL (1.8-7.0); NEUT % 30.1 % (50.0-75.0); NRBC % 0.1 % (0.0-2.0); RBC 4.99 Mil/uL (3.80-5.20); RED CELL DISTRIBUTION WIDTH 13.7 % (11.5-14.5); WHITE BLOOD COUNT 5.5 K/uL (4.8-10.8)
[2017-08-02 08:14] LABS: ALB/GLOB RATIO 1.3 (1.0-2.1); ALBUMIN 3.7 g/dL (3.5-5.0); ALT/SGPT 17 U/L (9-52); AST/SGOT 22 U/L (14-36); BLOOD UREA NITROGEN 12 mg/dL (7-17); CALCIUM 9.1 mg/dl (8.6-10.4); GFR AFRICAN-AMERICAN > 60; GFR NON-AFRICAN AMERICAN 59
--- NOTE | 2017-08-02 08:23 | CP.PCM.PN ---
Subjective - Date & Time of Evaluation Date of Evaluation: 08/02/17 Time of Evaluation: 08:20 - Subjective Subjective: Ms. Fuchs was seen nad examined at the bedside. She is alert, oriented in all spheres. She claims of feeling a minimal "fogginess", but aware that maybe an adverse effect of prolonged opiod use. She denies any headache, dizziness, weakness, nausea, or vomiting, able to ambulate within her room in steady gait. There was an PACK WORKER called last night for her due to difficulty to arouse, when patient woke up, cried infront of the staff, no intervention was done. Objective - Vital Signs/Intake and Output Vital Signs (last 24 hours): Temp Pulse Resp BP Pulse Ox 97.7 F 78 20 94/62 L 98 08/02/17 07:30 08/02/17 07:30 08/02/17 07:30 08/02/17 07:30 08/02/17 07:30 Intake and Output: 08/02/17 08/02/17 06:59 18:59 Intake Total 360 Balance 360 - Medications Medications: Current Medications Al Hydrox/Mg Hydrox/Simethicone (Maalox 30 Ml) 30 ml PO TID PRN PRN Reason: Indigestion / Heartburn Clonidine HCl (Catapres) 0.1 mg PO Q8H PRN PRN Reason: Systolic Blood Pressure Last Admin: 08/01/17 22:10 Dose: 0.1 mg Cyclobenzaprine HCl (Flexeril) 5 mg PO TID [facility] Last Admin: 08/01/17 18:07 Dose: 5 mg Dicyclomine HCl (Bentyl) 10 mg PO Q6 PRN PRN Reason: Muscle spasm Last Admin: 07/30/17 15:33 Dose: 10 mg Famotidine (Pepcid) 20 mg PO DAILY [facility] Last Admin: 08/01/17 09:37 Dose: 20 mg Gabapentin (Neurontin) 300 mg PO TID [facility] Last Admin: 08/01/17 18:07 Dose: 300 mg Hydroxyzine HCl (Atarax) 50 mg PO Q6H PRN PRN Reason: Anxiety Last Admin: 07/31/17 22:11 Dose: 50 mg Lorazepam (Ativan) 1 mg IVP Q4H PRN PRN Reason: Seizure activity Losartan Potassium (Cozaar) 25 mg PO DAILY [facility] Methadone HCl (Methadone) 10 mg PO Q24H [facility] PRN Reason: Taper Stop: 08/03/17 09:59 Last Admin: 08/01/17 10:10 Dose: 10 mg Nicotine (Nicoderm Cq) 1 patch TD DAILY [facility] Last Admin: 08/01/17 09:30 Dose: Not Given Ondansetron HCl (Zofran Tab) 4 mg PO Q6 PRN PRN Reason: Nausea/Vomiting Last Admin: 07/31/17 10:30 Dose: 4 mg Ondansetron HCl (Zofran Inj) 4 mg IVP Q6H PRN PRN Reason: Nausea/Vomiting Last Admin: 08/01/17 19:13 Dose: 4 mg Pantoprazole Sodium (Protonix Ec Tab) 40 mg PO DAILY [facility] Last Admin: 08/01/17 09:37 Dose: 40 mg Trazodone HCl (Desyrel) 100 mg PO HS PRN PRN Reason: insomnia Last Admin: 08/01/17 22:30 Dose: 100 mg - Labs Labs: 08/02/17 07:23 08/02/17 07:23 - Constitutional Appears: No Acute Distress - Head Exam Head Exam: NORMAL INSPECTION - Eye Exam Pupil Exam: Mydriatic, PERRL - Neurological Exam Neurological Exam: Alert, Awake, Oriented x3 Neuro motor strength exam: Left Upper Extremity: 5, Right Upper Extremity: 5, Left Lower Extremity: 5, Right Lower Extremity: 5 Additional comments: no neurological deficits noted. Assessment and Plan (1) Polysubstance (including opioids) dependence with physiol dependence Assessment & Plan: Case discussed with Dr. Puri, continue all current medical regimen. Pending EEG this am. Recommend hydration, blood pressure control. Status: Acute
[2017-08-02] MEDS ORDERED: Sodium Chloride 0.9% 1,000 ML IV SCH ×3 (09:15→11:00)
[2017-08-02] MEDS: Pantoprazole 40 mg EC Tab PO SCH (10:22)
[2017-08-02] MEDS ORDERED: Sodium Chloride 0.9% 500 ML IV ONE (10:23)
--- NOTE | 2017-08-02 10:46 | CP.PCM.PN ---
Addendum entered and electronically signed by Richa Patterson 08/02/17 15:20 : f/u EEG Original Note: <Richa Patterson - Last Filed: 08/02/17 14:26> Subjective - Date & Time of Evaluation Date of Evaluation: 08/02/17 Time of Evaluation: 07:00 - Subjective Subjective: PGY-[address] Brar Patient seen and examined at bedside. Patient in very good spirits and says she is feeling much better. Patient says her headache has resolved. Patient does admit to some lightheadedness. Patient denies any chest pain, sob, nausea, vomiting, constipation, or diarrhea. Patient's UDS from overnight came back positive for cocaine. Patient says she has not used since admission and has had no visitors. Objective - Vital Signs/Intake and Output Vital Signs (last 24 hours): Temp Pulse Resp BP Pulse Ox 97.7 F 62 20 102/61 98 08/02/17 07:30 08/02/17 08:50 08/02/17 07:30 08/02/17 08:50 08/02/17 07:30 Intake and Output: 08/02/17 08/02/17 06:59 18:59 Intake Total 360 Balance 360 - Medications Medications: Current Medications Al Hydrox/Mg Hydrox/Simethicone (Maalox 30 Ml) 30 ml PO TID PRN PRN Reason: Indigestion / Heartburn Clonidine HCl (Catapres) 0.1 mg PO Q8H PRN PRN Reason: Systolic Blood Pressure Last Admin: 08/01/17 22:10 Dose: 0.1 mg Cyclobenzaprine HCl (Flexeril) 5 mg PO TID [facility] Last Admin: 08/02/17 10:22 Dose: 5 mg Dicyclomine HCl (Bentyl) 10 mg PO Q6 PRN PRN Reason: Muscle spasm Last Admin: 07/30/17 15:33 Dose: 10 mg Famotidine (Pepcid) 20 mg PO DAILY [facility] Last Admin: 08/02/17 10:22 Dose: 20 mg Gabapentin (Neurontin) 300 mg PO TID [facility] Last Admin: 08/02/17 10:22 Dose: 300 mg Hydroxyzine HCl (Atarax) 50 mg PO Q6H PRN PRN Reason: Anxiety Last Admin: 07/31/17 22:11 Dose: 50 mg Sodium Chloride (Sodium Chloride 0.9%) 500 mls @ 1,000 mls/hr IV .Q30M ONE Stop: 08/02/17 10:52 Sodium Chloride (Sodium Chloride 0.9%) 1,000 mls @ 80 mls/hr IV .[id number] [facility] Stop: 08/02/17 23:29 Lorazepam (Ativan) 1 mg IVP Q4H PRN PRN Reason: Seizure activity Losartan Potassium (Cozaar) 25 mg PO DAILY [facility] Last Admin: 08/02/17 09:59 Dose: Not Given Methadone HCl (Methadone) 5 mg PO Q24H [facility] PRN Reason: Taper Stop: 08/03/17 09:59 Last Admin: 08/02/17 10:22 Dose: 5 mg Nicotine (Nicoderm Cq) 1 patch TD DAILY [facility] Last Admin: 08/02/17 10:00 Dose: Not Given Ondansetron HCl (Zofran Tab) 4 mg PO Q6 PRN PRN Reason: Nausea/Vomiting Last Admin: 07/31/17 10:30 Dose: 4 mg Ondansetron HCl (Zofran Inj) 4 mg IVP Q6H PRN PRN Reason: Nausea/Vomiting Last Admin: 08/01/17 19:13 Dose: 4 mg Pantoprazole Sodium (Protonix Ec Tab) 40 mg PO DAILY [facility] Last Admin: 08/02/17 10:22 Dose: 40 mg Trazodone HCl (Desyrel) 100 mg PO HS PRN PRN Reason: insomnia Last Admin: 08/01/17 22:30 Dose: 100 mg - Labs Labs: 08/02/17 07:23 08/02/17 07:23 - Additional Findings Additional findings: - Constitutional Appears: Non-toxic, No Acute Distress - Head Exam Head Exam: ATRAUMATIC, NORMAL INSPECTION, NORMOCEPHALIC - Eye Exam Eye Exam: EOMI, Normal appearance - ENT Exam ENT Exam: Mucous Membranes Moist - Respiratory Exam Respiratory Exam: Clear to Ausculation Bilateral, NORMAL BREATHING PATTERN - Cardiovascular Exam Cardiovascular Exam: REGULAR RHYTHM, RRR, +S1, +S2 - GI/Abdominal Exam GI & Abdominal Exam: Soft, Tenderness, Hyperactive Bowel Sounds. absent: Distended, Firm - Extremities Exam Extremities Exam: Normal Inspection. absent: Pedal Edema, Tenderness - Neurological Exam Neurological Exam: Alert, Awake, Oriented x3 - Psychiatric Exam Psychiatric exam: Normal Affect, Normal Mood - Skin Skin Exam: Intact, Normal Color, Warm Assessment and Plan - Assessment and Plan (Free Text) Assessment: Hypertensive Urgency, resolved likely due to withdrawal symptoms patient had episodes of hypotension after adding antihypertensive medications antihypertensive medications held Clonidine given for increased bp Losartan 50mg po daily started on 08/01 overnight patient's bp increased to 210/95 patient was given clonidine, amlodipine, and hydralazine which decreased patient bp to 102/59 NS started and fluid bolus given then NS at 80cc/hr. Losartan decreased to 25mg po daily on 08/02 continue to monitor Polysubstance abuse Management per psychiatry patient refusing Methadone Seizure witnessed seizure on 08/[address]: no intracranial hemorrhage, ethmoidal sinus thickening Neurology, Dr. Puri, consulted, help appreciated PRINCE, resolved BUN/ Cr: 12/.9 on 08/01 down from 18/2.1 on 07/31 Neuro, Dr. Estrella consulted as per Dr. Estrella most likely normotensive ATN in the setting of rapidly decreasing BP avoid drops in SBP< 140s avoid NSAID renal US: unremarkable NS at 80cc/hr Proteinuria f/u complements, hep C ab, TESFAYE, ANCA, RPR, serum free light chains, SPEP, serum immunofixation f/u random urine for protein, microalbumin, creatinine Electrolyte Abnormalities Potassium 3.3, KDUR 40 meq Magnesium 1.7, Mg sulfate 1 g given Constipation Dulcolax 5mg given monitor Prophylaxis Pepcid 20mg po daily [facility] <Laura Brar V - Last Filed: 08/02/17 16:22> Objective - Vital Signs/Intake and Output Vital Signs (last 24 hours): Temp Pulse Resp BP Pulse Ox 99.9 F H 61 20 212/109 H 97 08/02/17 15:31 08/02/17 15:31 08/02/17 15:31 08/02/17 15:31 08/02/17 15:31 Intake and Output: 08/02/17 08/02/17 06:59 18:59 Intake Total 360 750 Balance 360 750 - Medications Medications: Current Medications Al Hydrox/Mg Hydrox/Simethicone (Maalox 30 Ml) 30 ml PO TID PRN PRN Reason: Indigestion / Heartburn Clonidine HCl (Catapres) 0.1 mg PO Q8H PRN PRN Reason: Systolic Blood Pressure Last Admin: 08/02/17 14:40 Dose: 0.1 mg Cyclobenzaprine HCl (Flexeril) 5 mg PO TID [facility] Last Admin: 08/02/17 14:55 Dose: Not Given Dicyclomine HCl (Bentyl) 10 mg PO Q6 PRN PRN Reason: Muscle spasm Last Admin: 07/30/17 15:33 Dose: 10 mg Famotidine (Pepcid) 20 mg PO DAILY [facility] Last Admin: 08/02/17 10:22 Dose: 20 mg Gabapentin (Neurontin) 300 mg PO TID [facility] Last Admin: 08/02/17 14:55 Dose: Not Given Hydroxyzine HCl (Atarax) 50 mg PO Q6H PRN PRN Reason: Anxiety Last Admin: 07/31/17 22:11 Dose: 50 mg Sodium Chloride (Sodium Chloride 0.9%) 1,000 mls @ 80 mls/hr IV .[id number] [facility] Stop: 08/02/17 23:29 Last Admin: 08/02/17 11:16 Dose: 80 mls/hr Lorazepam (Ativan) 1 mg IVP Q4H PRN PRN Reason: Seizure activity Losartan Potassium (Cozaar) 25 mg PO DAILY [facility] Last Admin: 08/02/17 09:59 Dose: Not Given Losartan Potassium (Cozaar) 25 mg PO STAT STA Stop: 08/02/17 16:13 Methadone HCl (Methadone) 5 mg PO Q24H [facility] PRN Reason: Taper Stop: 08/03/17 09:59 Last Admin: 08/02/17 10:22 Dose: 5 mg Nicotine (Nicoderm Cq) 1 patch TD DAILY [facility] Last Admin: 08/02/17 10:00 Dose: Not Given Ondansetron HCl (Zofran Tab) 4 mg PO Q6 PRN PRN Reason: Nausea/Vomiting Last Admin: 07/31/17 10:30 Dose: 4 mg Ondansetron HCl (Zofran Inj) 4 mg IVP Q6H PRN PRN Reason: Nausea/Vomiting Last Admin: 08/02/17 14:34 Dose: 4 mg Pantoprazole Sodium (Protonix Ec Tab) 40 mg PO DAILY [facility] Last Admin: 08/02/17 10:22 Dose: 40 mg Trazodone HCl (Desyrel) 100 mg PO HS PRN PRN Reason: insomnia Last Admin: 08/01/17 22:30 Dose: 100 mg - Labs Labs: 08/02/17 07:23 08/02/17 07:23 Attending/Attestation - Attestation I have personally seen and examined this patient.: Yes I have fully participated in the care of the patient.: Yes I have reviewed all pertinent clinical information, including history, physical exam and plan: Yes Notes (Text): Patient seen, examined and case discussed with day-time resident. Patient seen this morning. Patient reports she is feeling well and wants to go home soon. Patient denies any acute complaints. I have discussed with her in regards to UDS findings since cocaine is present in her system. patient reports she is not using, does not have visitors, and I do not get the impression she is using while in the hospital either. Overnight, patient receive Hydralazine 10mg IVP, Norvasc 5mg PO, and her Clonidine, blood pressure borderline hypotension; patient is asymptomatic. Patient received IV fluids this morning. We will use the Clonidine PRN and Cozaar for today. We have discontinue IV fluids this afternoon since blood pressure is now currently uncontrolled. Patient may need dose of Lasix prior to end of my shift. The goal SBP: 150s. I have discussed this with nephrology as well given her labile blood pressure. Patient is scheduled for EEG today in regards to seizure activity per recommendation by neurology. Assessment/Plan 1) Hypertensive Urgency Assessment/Plan * worsening by drug withdrawal, history of hypertension wherein she takes anti- hypertensives * PRN clondine if SBP>180 and Cozaar 25mg PO daily * Discussed with nephrology today. 2) Acute Renal insufficiency Assessment/Plan * Nephrology is on board-->help appreciated * improving with IV fluids * continue to monitor * Renal US: unremarkable 3) Polysubstance abuse Assessment/Plan * Management per psychiatry * Patient is on methadone taper per psych 4) History of questionable seizures? * Neurology (Dr. Puri) on board-->help appreciated * Patient is for EEG today. 5) Prophylactic measure * SCDS b/l * Pepcid 20mg PO bid * ambulatory
[2017-08-02 12:54] LABS: ALBUMIN (PEP) 4.1 g/dL (3.8-4.8); ALPHA-1-GLOBULIN (PEP) 0.3 g/dL (0.2-0.3)
--- NOTE | 2017-08-02 13:26 | PCM.PYCHPN ---
Psychiatric Progress Note - Psychiatric Progress Note Patient seen today, length of contact: 16 min Patient Chief Complaint: "I am fine" Problems Identified/Issues Discussed: The pt is seen, chart reviewed, case discussed with staff. The pt is compliant with medications and reports no side-effects. Symptoms are improving but she is note medically cleared yet After care discussed, support and psychoeducation Detox ended Psych will sign off Medication Change: Yes (detox changes daily) Medical Record Reviewed: Yes Mental Status Examination - Cognitive Function Orientation: Person, Place, Situation, Time Memory: Impaired Attention: Poor Concentration: Poor Association: WNL Fund of Knowledge: Poor - Mood Mood: Anxious - Affect Affect: Constricted - Speech Speech: Appropriate - Formal Thought Process Formal Thought Process: No Impairment - Suicidal Ideation Suicidal Ideation: No - Homicidal Ideation Homicidal Ideation: No Goal/Treatment Plan - Goal/Treatment Plan Need for Continued Stay: Other (medical) Progress Toward Problem(s) and Goals/Treatment Plan: Taper with methadone ended Gabapentin for augmentation if needed As needed medications All risks, benefits and alternatives of the meds were already discussed, and the pt agreed and understood. Supportive therapy and psychoeducation MA for abstinence Encourage MAT Refer to rehab or IOP, and self-help groups Smoking cessation with MA Nicotine patch if needed Psych will sign off
--- NOTE | 2017-08-02 20:58 | CP.PCM.PN ---
Subjective - Date & Time of Evaluation Date of Evaluation: 08/02/17 Time of Evaluation: 13:00 - Subjective Subjective: Patient with very high BP last night but felt fine; given multiple meds to control; otherwise, denies sob; no nausea/vomiting but still no BM; Objective - Vital Signs/Intake and Output Vital Signs (last 24 hours): Temp Pulse Resp BP Pulse Ox 98.9 F 65 18 104/76 97 08/02/17 16:15 08/02/17 16:15 08/02/17 16:15 08/02/17 20:37 08/02/17 16:15 Intake and Output: 08/02/17 08/03/17 18:59 06:59 Intake Total 750 Balance 750 - Medications Medications: Current Medications Al Hydrox/Mg Hydrox/Simethicone (Maalox 30 Ml) 30 ml PO TID PRN PRN Reason: Indigestion / Heartburn Clonidine HCl (Catapres) 0.1 mg PO Q8H PRN PRN Reason: Systolic Blood Pressure Last Admin: 08/02/17 14:40 Dose: 0.1 mg Cyclobenzaprine HCl (Flexeril) 5 mg PO TID [facility] Last Admin: 08/02/17 18:27 Dose: 5 mg Dicyclomine HCl (Bentyl) 10 mg PO Q6 PRN PRN Reason: Muscle spasm Last Admin: 07/30/17 15:33 Dose: 10 mg Famotidine (Pepcid) 20 mg PO DAILY [facility] Last Admin: 08/02/17 10:22 Dose: 20 mg Gabapentin (Neurontin) 300 mg PO TID [facility] Last Admin: 08/02/17 18:27 Dose: 300 mg Hydroxyzine HCl (Atarax) 50 mg PO Q6H PRN PRN Reason: Anxiety Last Admin: 07/31/17 22:11 Dose: 50 mg Sodium Chloride (Sodium Chloride 0.9%) 1,000 mls @ 80 mls/hr IV .[id number] [facility] Stop: 08/02/17 23:29 Last Admin: 08/02/17 11:16 Dose: 80 mls/hr Lorazepam (Ativan) 1 mg IVP Q4H PRN PRN Reason: Seizure activity Losartan Potassium (Cozaar) 25 mg PO DAILY [facility] Last Admin: 08/02/17 09:59 Dose: Not Given Methadone HCl (Methadone) 5 mg PO Q24H [facility] PRN Reason: Taper Stop: 08/03/17 09:59 Last Admin: 08/02/17 10:22 Dose: 5 mg Nicotine (Nicoderm Cq) 1 patch TD DAILY [facility] Last Admin: 08/02/17 10:00 Dose: Not Given Ondansetron HCl (Zofran Tab) 4 mg PO Q6 PRN PRN Reason: Nausea/Vomiting Last Admin: 07/31/17 10:30 Dose: 4 mg Ondansetron HCl (Zofran Inj) 4 mg IVP Q6H PRN PRN Reason: Nausea/Vomiting Last Admin: 08/02/17 14:34 Dose: 4 mg Pantoprazole Sodium (Protonix Ec Tab) 40 mg PO DAILY [facility] Last Admin: 08/02/17 10:22 Dose: 40 mg Trazodone HCl (Desyrel) 100 mg PO HS PRN PRN Reason: insomnia Last Admin: 08/01/17 22:30 Dose: 100 mg - Labs Labs: 08/02/17 07:23 08/02/17 07:23 - Constitutional Appears: Non-toxic, No Acute Distress - Eye Exam Eye Exam: Normal appearance. absent: Scleral icterus - ENT Exam ENT Exam: Mucous Membranes Moist - Respiratory Exam Respiratory Exam: Clear to Ausculation Bilateral. absent: Respiratory Distress - Cardiovascular Exam Cardiovascular Exam: RRR, +S1, +S2. absent: Gallop - GI/Abdominal Exam GI & Abdominal Exam: Soft. absent: Distended, Tenderness - Extremities Exam Additional comments: no leg edema; - Neurological Exam Neurological Exam: Alert, Awake - Psychiatric Exam Psychiatric exam: Normal Mood. absent: Agitated - Skin Skin Exam: Warm. absent: Cyanosis Assessment and Plan (1) Acute kidney injury Assessment & Plan: Resolved; likely some component of ATN after acute drop in BP; BP still very labile; IVF started this morning as SBP once again in 90's, down from 200's last night; -need to avoid aggressive lowering of BP with meds acutely; Status: Acute (2) Hypertension Assessment & Plan: Labile BP as above, appears very sensitive to sodium load; -continue losartan 25 mg daily; can titrate upward slowly; goal for now should be SBP ~150; -clonidine 0.1 mg q8h prn for SBP > 180; -stopping IVF; -checking plasma mitchell/renin level, metanephrines; Status: Acute (3) Proteinuria Assessment & Plan: Seen on multiple UA samples but random urine protein/creat ratio not showing any significant proteinuria; should monitor as outpatient; Status: Chronic (4) Hematuria Assessment & Plan: Without proteinuria, need to look for tract lesions as cause of microscopic hematuria; -sending urine cytology; -may need outpatient urology eval; Status: Chronic
[2017-08-02 21:54] LABS: SQUAMOUS EPITHIAL 3 /hpf (0-5); URINE BACTERIA OCC (<OCC); URINE BILIRUBIN NEGATIVE (NEGATIVE); URINE BLOOD 2+ (NEGATIVE); URINE CLARITY Clear (Clear); URINE COLOR Yellow (YELLOW); URINE GLUCOSE (UA) NORMAL (Normal); URINE LEUKOCYTE ESTERASE NEG Leu/uL (Negative); URINE PROTEIN NEGATIVE (NEGATIVE); URINE UROBILINOGEN NORMAL mg/dL (0.2-1.0)
[2017-08-03 01:03] VITALS: RESP 20
[2017-08-03 06:47] LABS: BASO % 0.8 % (0.0-2.0); EOS # 0.1 K/uL (0.0-0.7); EOS % 2.6 % (0.0-4.0); HEMOGLOBIN 16.3 g/dL (11.0-16.0); LYMPH % 53.9 % (20.0-40.0); MEAN CELL VOLUME 91.3 fL (81.0-99.0); MEAN CORPUSCULAR HEMOGLOBIN 31.3 pg (27.0-31.0); MEAN CORPUSCULAR HGB CONC 34.3 g/dL (33.0-37.0); MEAN PLATELET VOLUME 9.2 fL (7.2-11.7); MONO # 0.5 K/uL (0.0-0.8); MONO % 8.1 % (0.0-10.0); NEUT % 34.6 % (50.0-75.0); NRBC % 0.1 % (0.0-2.0); RBC 5.21 Mil/uL (3.80-5.20); RED CELL DISTRIBUTION WIDTH 13.4 % (11.5-14.5); WHITE BLOOD COUNT 5.6 K/uL (4.8-10.8)
[2017-08-03 07:35] LABS: ALB/GLOB RATIO 1.4 (1.0-2.1); ALBUMIN 4.2 g/dL (3.5-5.0); ALT/SGPT 21 U/L (9-52); AST/SGOT 22 U/L (14-36); BLOOD UREA NITROGEN 11 mg/dL (7-17); CALCIUM 9.3 mg/dl (8.6-10.4); GFR AFRICAN-AMERICAN > 60; GFR NON-AFRICAN AMERICAN 53
[2017-08-03 08:27] VITALS: BP 132/82; PULSE 88; TEMP 98.7; O2SAT 96
--- NOTE | 2017-08-03 08:48 | CP.PCM.PN ---
Subjective - Date & Time of Evaluation Date of Evaluation: 08/03/17 Time of Evaluation: 08:48 - Subjective Subjective: Ms. Fuchs was seen nad examined at the bedside. She is alert, oriented in all spheres. She denies any headache, dizziness, weakness, nausea, or vomiting, able to ambulate within her room in steady gait. She is requesting to be discharge today. EEG is normal.There was no untoward events overnight. Objective - Vital Signs/Intake and Output Vital Signs (last 24 hours): Temp Pulse Resp BP Pulse Ox 98.7 F 88 20 132/82 96 08/03/17 08:25 08/03/17 08:25 08/03/17 08:25 08/03/17 08:25 08/03/17 08:25 - Medications Medications: Current Medications Al Hydrox/Mg Hydrox/Simethicone (Maalox 30 Ml) 30 ml PO TID PRN PRN Reason: Indigestion / Heartburn Clonidine HCl (Catapres) 0.1 mg PO Q8H PRN PRN Reason: Systolic Blood Pressure Last Admin: 08/02/17 14:40 Dose: 0.1 mg Cyclobenzaprine HCl (Flexeril) 5 mg PO TID [facility] Last Admin: 08/02/17 18:27 Dose: 5 mg Dicyclomine HCl (Bentyl) 10 mg PO Q6 PRN PRN Reason: Muscle spasm Last Admin: 07/30/17 15:33 Dose: 10 mg Famotidine (Pepcid) 20 mg PO DAILY [facility] Last Admin: 08/02/17 10:22 Dose: 20 mg Gabapentin (Neurontin) 300 mg PO TID [facility] Last Admin: 08/02/17 18:27 Dose: 300 mg Hydroxyzine HCl (Atarax) 50 mg PO Q6H PRN PRN Reason: Anxiety Last Admin: 07/31/17 22:11 Dose: 50 mg Lorazepam (Ativan) 1 mg IVP Q4H PRN PRN Reason: Seizure activity Losartan Potassium (Cozaar) 25 mg PO DAILY [facility] Last Admin: 08/02/17 09:59 Dose: Not Given Methadone HCl (Methadone) 5 mg PO Q24H [facility] PRN Reason: Taper Stop: 08/03/17 09:59 Last Admin: 08/02/17 10:22 Dose: 5 mg Nicotine (Nicoderm Cq) 1 patch TD DAILY [facility] Last Admin: 08/02/17 10:00 Dose: Not Given Ondansetron HCl (Zofran Tab) 4 mg PO Q6 PRN PRN Reason: Nausea/Vomiting Last Admin: 07/31/17 10:30 Dose: 4 mg Ondansetron HCl (Zofran Inj) 4 mg IVP Q6H PRN PRN Reason: Nausea/Vomiting Last Admin: 08/03/17 06:19 Dose: 4 mg Pantoprazole Sodium (Protonix Ec Tab) 40 mg PO DAILY [facility] Last Admin: 08/02/17 10:22 Dose: 40 mg Trazodone HCl (Desyrel) 100 mg PO HS PRN PRN Reason: insomnia Last Admin: 08/02/17 21:50 Dose: 100 mg - Labs Labs: 08/03/17 06:29 08/03/17 06:29 - Constitutional Appears: No Acute Distress - Head Exam Head Exam: NORMAL INSPECTION - Eye Exam Pupil Exam: PERRL - Neurological Exam Neurological Exam: Alert, Awake, Oriented x3 Neuro motor strength exam: Left Upper Extremity: 5, Right Upper Extremity: 5, Left Lower Extremity: 5, Right Lower Extremity: 5 Additional comments: neurological unchanged from previous examination. Assessment and Plan (1) Polysubstance (including opioids) dependence with physiol dependence Assessment & Plan: Case discussed with Dr. Puri, continue all current medical regimen. Since EEG is normal, patient does not need any AED and may discharge to home pending primary evaluation. Neurology is signing off from this case. Status: Acute
[2017-08-03] MEDS ORDERED: Bisacodyl 5mg EC Tab PO ONE (11:13)
[2017-08-03] MEDS: Pantoprazole 40 mg EC Tab PO SCH (11:47)
[2017-08-03 12:39] LABS: BARBITURATES, UR NEGATIVE (NEGATIVE); BENZODIAZEPINES, UR NEGATIVE (NEGATIVE); PHENCYCLIDINE, UR NEGATIVE (NEGATIVE)
[2017-08-03 13:17] LABS: OPIATES, UR POSITIVE (NEGATIVE)
--- NOTE | 2017-08-03 14:58 | CP.PCM.DIS ---
<Richa Patterson - Last Filed: 08/03/17 14:59> Provider - Provider Date of Admission: 07/28/17 20:04 Attending physician: Laura Brar DO Primary care physician: Consults: Nephro: Delores Neuro: Puri Time Spent in preparation of Discharge (in minutes): 45 Diagnosis - Discharge Diagnosis (1) Opioid use disorder, severe, dependence Status: Chronic (2) Hypertension Status: Chronic (3) Acute kidney injury Status: Resolved Hospital Course - Lab Results Lab Results: Most Recent Lab Values WBC 5.6 K/uL (4.8-10.8) 08/03/17 06:29 RBC 5.21 Mil/uL (3.80-5.20) H 08/03/17 06:29 Hgb 16.3 g/dL (11.0-16.0) H 08/03/17 06:29 Hct 47.6 % (34.0-47.0) H 08/03/17 06:29 MCV 91.3 fL (81.0-99.0) 08/03/17 06:29 MCH 31.3 pg (27.0-31.0) H 08/03/17 06:29 MCHC 34.3 g/dL (33.0-37.0) 08/03/17 06:29 RDW 13.4 % (11.5-14.5) 08/03/17 06:29 Plt Count 234 K/uL (130-400) 08/03/17 06:29 MPV 9.2 fL (7.2-11.7) 08/03/17 06:29 Neut % (Auto) 34.6 % (50.0-75.0) L 08/03/17 06:29 Lymph % (Auto) 53.9 % (20.0-40.0) H 08/03/17 06:29 Webb % (Auto) 8.1 % (0.0-10.0) 08/03/17 06:29 Eos % (Auto) 2.6 % (0.0-4.0) 08/03/17 06:29 Baso % (Auto) 0.8 % (0.0-2.0) 08/03/17 06:29 Neut # (Auto) 2.0 K/uL (1.8-7.0) 08/03/17 06:29 Lymph # (Auto) 3.0 K/uL (1.0-4.3) 08/03/17 06:29 Webb # (Auto) 0.5 K/uL (0.0-0.8) 08/03/17 06:29 Eos # (Auto) 0.1 K/uL (0.0-0.7) 08/03/17 06:29 Baso # (Auto) 0.0 K/uL (0.0-0.2) 08/03/17 06:29 pO2 49 mm/Hg (30-55) 07/31/17 01:38 VBG pH 7.42 (7.32-7.43) 07/31/17 01:38 VBG pCO2 41 mmHg (40-60) 07/31/17 01:38 VBG HCO3 26.1 mmol/L 07/31/17 01:38 VBG Total CO2 27.9 mmol/L (22-28) 07/31/17 01:38 VBG O2 Sat (Calc) 87.9 % (40-65) H 07/31/17 01:38 VBG Base Excess 1.9 mmol/L (0.0-2.0) 07/31/17 01:38 VBG Potassium 2.9 mmol/L (3.6-5.2) L 07/31/17 01:38 Sodium 137.0 mmol/l (132-148) 07/31/17 01:38 Chloride 103.0 mmol/L (98-107) 07/31/17 01:38 Glucose 107 mg/dl (65-105) H 07/31/17 01:38 Lactate 1.1 mmol/L (0.7-2.1) 07/31/17 01:38 Sodium 139 mmol/L (132-148) 08/03/17 06:29 Potassium 3.7 mmol/L (3.6-5.2) 08/03/17 06:29 Chloride 101 mmol/L (98-107) 08/03/17 06:29 Carbon Dioxide 28 mmol/L (22-30) 08/03/17 06:29 Anion Gap 13 (10-20) 08/03/17 06:29 BUN 11 mg/dL (7-17) 08/03/17 06:29 Creatinine 1.1 mg/dL (0.7-1.2) 08/03/17 06:29 Est GFR ( Amer) > 60 08/03/17 06:29 Est GFR (Non-Af Amer) 53 08/03/17 06:29 POC Glucose (mg/dL) 113 mg/dL (65-110) H 08/01/17 07:06 Random Glucose 95 mg/dL (65-105) 08/03/17 06:29 Calcium 9.3 mg/dl (8.6-10.4) 08/03/17 06:29 Phosphorus 3.6 mg/dL (2.5-4.5) 08/03/17 06:29 Magnesium 1.8 mg/dL (1.6-2.3) 08/03/17 06:29 Total Bilirubin 1.1 mg/dL (0.2-1.3) 08/03/17 06:29 AST 22 U/L (14-36) 08/03/17 06:29 ALT 21 U/L (9-52) 08/03/17 06:29 Alkaline Phosphatase 76 U/L (38-126) 08/03/17 06:29 Total Protein 7.0 g/dL (6.3-8.3) 08/03/17 06:29 Total Protein (PEP) 7.0 g/dL (6.1-8.1) 08/01/17 07:55 Albumin 4.2 g/dL (3.5-5.0) 08/03/17 06:29 Albumin (PEP) 4.1 g/dL (3.8-4.8) 08/01/17 07:55 Globulin 2.9 gm/dL (2.2-3.9) 08/03/17 06:29 Albumin/Globulin Ratio 1.4 (1.0-2.1) 08/03/17 06:29 Mukgw-1-Mbkjxbrxb 0.3 g/dL (0.2-0.3) 08/01/17 07:55 Mcrcz-4-Kkjotppqx 0.8 g/dL (0.5-0.9) 08/01/17 07:55 Cyln-6-Hlnmlwch 0.4 g/dL (0.4-0.6) 08/01/17 07:55 Tpcq-7-Hljcuatq 0.4 g/dL (0.2-0.5) 08/01/17 07:55 Gamma Globulins 1.0 g/dL (0.8-1.7) 08/01/17 07:55 Abnorm Protein Band 1 TEST NOT PERFORMED 08/01/17 07:55 Abnorm Protein Band 2 TEST NOT PERFORMED 08/01/17 07:55 Abnorm Protein Band 3 TEST NOT PERFORMED 08/01/17 07:55 Lipase 18 U/L (23-300) L 07/31/17 02:06 25-OH Vitamin D Total 26.6 NG/ML (30.0-100.0) L 07/31/17 11:15 TSH 3rd Generation 0.73 mIU/L (0.46-4.68) 07/31/17 02:06 Venous Blood Potassium 2.9 mmol/L (3.6-5.2) L 07/31/17 01:38 Urine Color Yellow (YELLOW) 08/02/17 21: Urine Clarity Clear (Clear) 08/02/17 21: Urine pH 6.0 (5.0-8.0) 08/02/17 21:29 Ur Specific Bonner 1.014 (1.003-1.030) 08/02/17 21:29 Urine Protein Negative mg/dL (NEGATIVE) 08/02/17 21: Urine Glucose (UA) Normal mg/dL (Normal) 08/02/17 21:29 Urine Ketones Trace mg/dL (NEGATIVE) 08/02/17 21:29 Urine Blood 2+ (NEGATIVE) H 08/02/17 21:29 Urine Nitrate Negative (NEGATIVE) 08/02/17 21: Urine Bilirubin Negative (NEGATIVE) 08/02/17 21:29 Urine Urobilinogen Normal mg/dL (0.2-1.0) 08/02/17 21:29 Ur Leukocyte Esterase Neg Stephanie/uL (Negative) 08/02/17 21:29 Urine WBC (Auto) < 1 /hpf (0-5) 08/02/17 21:29 Urine RBC (Auto) 15 /hpf (0-3) H 08/02/17 21:29 Ur Squamous Epith Cells 3 /hpf (0-5) 08/02/17 21:29 Urine Bacteria Occ (<OCC) H 08/02/17 21:29 Ur Random Creatinine 113.1 mg/dL 08/02/17 21:29 U Random Total Protein 13.0 mg/dL (0.0-12.0) H 08/02/17 21:38 Urine Total Volume 0.9 mg/dL 07/31/17 06:38 Urine Microalbumin 16.7 mg/L (0.0-16.6) H 08/02/17 21:18 Microalb/Creat Ratio 7 (<30) 07/31/17 06:38 Urine HCG, Qual Negative (NEGATIVE) 07/28/17 18:06 Urine Opiates Screen Positive (NEGATIVE) H 08/03/17 11:58 Urine Methadone Screen Positive (NEGATIVE) H 08/03/17 11:58 Ur Barbiturates Screen Negative (NEGATIVE) 08/03/17 11:58 Ur Phencyclidine Scrn Negative (NEGATIVE) 08/03/17 11:58 Ur Amphetamines Screen Negative (NEGATIVE) 08/03/17 11:58 U Benzodiazepines Scrn Negative (NEGATIVE) 08/03/17 11:58 U Oth Cocaine Metabols Positive (NEGATIVE) H 08/03/17 11:58 U Cannabinoids Screen Negative (NEGATIVE) 08/03/17 11:58 Alcohol, Quantitative < 10 mg/dl (0-10) 07/28/17 18:06 KJ & SPEP Interp See note 08/01/17 07:55 Serum Immunofixation Not detected (Not Detected) 08/01/17 07:55 TESFAYE 6 Profile Negative (NEGATIVE) 08/01/17 07:55 RPR Nonreactive (NONREACTIVE) 08/01/17 07:55 Hep Bs Antigen Negative (NEGATIVE) 08/01/17 07:55 Hep Bs Antibody Positive (NEGATIVE) 08/01/17 07:55 Hepatitis C Antibody Negative (NEGATIVE) 07/29/17 16:42 HIV 1&2 Antibody Screen Negative (NEGATIVE) 07/29/17 16:42 - Hospital Course Hospital Course: "47 year old female with history of hypertension, cocaine and heroin abuse was admitted to detox unit. Medical service was consulted to evaluate patient's uncontrolled hypertension. Patient has been sleeping in her room most of today. Her evening BP was found be be 210/109. Patient is very drowsy at the time of interview. I had to wake the patient up multiple times. Currently patient complains of dizziness and chills. She denies having blurred vision, shortness of breath, chest pain, vomiting, or urinary complaints. Patient is taking unknown hypertension medication (likely Losartan/HCTZ per chart review) outside of the hospital but was not compliant with it. She has been receiving clonidine while in detox for withdrawal symptoms. She has not been eating well due to withdrawals." Patient was admitted for polysubstance abuse and withdrawal and managed per Psych. Medicine was consulted for hypertension. Patient had a PMH of HTN with home meds of Losartan-HCTZ. Patient was transferred to medicine for hypertensive urgency. Patients hypertensive urgency was likely do to the withdrawal symptoms. She experienced episodes of elevated blood pressure and hypotension which led to acute kidney injury. Nephrology was consulted and kidney injury resolved with IV hydration. Patient was cleared by nephrology with instructions to follow up as an outpatient. Patient's blood pressure upon discharge was controlled with Losartan 25mg po daily which will be continued as an outpatient. On 08/01 a rapid response was called for witnessed seizure activity of about 30 seconds. Patient had a post ictal period of a few minutes. Patient then admitted to having seizures in the past but denied every having to be placed on seizure medication. Head CT without contrast was ordered and ativan PRN was ordered. CT of head was unremarkable. Neurology was consulted. EEG was performed and was unremarkable. Neurology cleared patient. Upon discharge patient had no complaints and blood pressure was stabilized. This is a summary of the patient's hospital course, please see chart for full details. Discharge Exam - Head Exam Head Exam: ATRAUMATIC, NORMAL INSPECTION, NORMOCEPHALIC - Eye Exam Eye Exam: EOMI, Normal appearance - ENT Exam ENT Exam: Mucous Membranes Moist - Neck Exam Neck exam: Full Rom - Respiratory Exam Respiratory Exam: NORMAL BREATHING PATTERN, UNREMARKABLE. absent: Rhonchi, Wheezes, Respiratory Distress, Stridor - Cardiovascular Exam Cardiovascular Exam: REGULAR RHYTHM, RRR, +S1, +S2. absent: Systolic Murmur - GI/Abdominal Exam GI & Abdominal Exam: Normal Bowel Sounds, Soft. absent: Tenderness - Extremities Exam Extremities exam: normal inspection - Neurological Exam Neurological exam: Alert, Oriented x3 - Psychiatric Exam Psychiatric exam: Normal Affect, Normal Mood - Skin Skin Exam: Intact, Normal Color, Warm Discharge Plan - Discharge Medications Prescriptions: RX: Losartan [Cozaar] 25 mg PO DAILY #30 tab - Follow Up Plan Condition: GOOD Disposition: HOME/ ROUTINE Instructions: Heart Healthy Diet, Acute Kidney Failure (DC), Blood in the Urine (Hematuria), Adult (DC), Losartan Additional Instructions: Discharge Hotline Numbers: [place] [facility] 24 Hour Hotline: 329-597 HELP (3374) [place] Addictions Services Hotline - AA- Alcoholics Anonymous 24 Hour Hotline: 8-736-089- 5558 NA- Narcotics Anonymous 24 Hour Hotline: [place] Quitline (cigarettes): If needed you can reach the detox unit at Avoid all mood and mind altering substances including alcohol. Make every effort to make 90 meetings in 90 days and obtain a sponsor and get involved in 12 step recovery. Follow up with you primary doctor for your medical needs Discharge Medications: Nutrition: Eat balanced meals incorporating fruits, vegetables and protein. Drink plenty of water throughout the day at least 8 to 10 cups. Sleep is extremely important in your recovery. Follow Up Appointments [facility] [address] [place] [id number] Appointment: Pending Transportation: Pending Please follow up with nephrology (kidney doctor) Dr. Estrella within two weeks. Please follow up with your PMD, Dr. Hale within 2 weeks. Referrals: Alex Estrella MD [Staff Provider] - <Laura Brar V - Last Filed: 08/03/17 23:53> Provider - Provider Date of Admission: 07/28/17 20:04 Attending physician: Laura Brar DO Hospital Course - Lab Results Lab Results: Most Recent Lab Values WBC 5.6 K/uL (4.8-10.8) 08/03/17 06:29 RBC 5.21 Mil/uL (3.80-5.20) H 08/03/17 06:29 Hgb 16.3 g/dL (11.0-16.0) H 08/03/17 06:29 Hct 47.6 % (34.0-47.0) H 08/03/17 06:29 MCV 91.3 fL (81.0-99.0) 08/03/17 06:29 MCH 31.3 pg (27.0-31.0) H 08/03/17 06: MCHC 34.3 g/dL (33.0-37.0) 08/03/17 06: RDW 13.4 % (11.5-14.5) 08/03/17 06:29 Plt Count 234 K/uL (130-400) 08/03/17 06: MPV 9.2 fL (7.2-11.7) 08/03/17 06: Neut % (Auto) 34.6 % (50.0-75.0) L 08/03/17 06: Lymph % (Auto) 53.9 % (20.0-40.0) H 08/03/17 06: Webb % (Auto) 8.1 % (0.0-10.0) 08/03/17 06: Eos % (Auto) 2.6 % (0.0-4.0) 08/03/17 06: Baso % (Auto) 0.8 % (0.0-2.0) 08/03/17 06: Neut # (Auto) 2.0 K/uL (1.8-7.0) 08/03/17 06: Lymph # (Auto) 3.0 K/uL (1.0-4.3) 08/03/17 06: Webb # (Auto) 0.5 K/uL (0.0-0.8) 08/03/17 06: Eos # (Auto) 0.1 K/uL (0.0-0.7) 08/03/17 06: Baso # (Auto) 0.0 K/uL (0.0-0.2) 08/03/17 06: pO2 49 mm/Hg (30-55) 07/31/17 01:38 VBG pH 7.42 (7.32-7.43) 07/31/17 01:38 VBG pCO2 41 mmHg (40-60) 07/31/17 01:38 VBG HCO3 26.1 mmol/L 07/31/17 01:38 VBG Total CO2 27.9 mmol/L (22-28) 07/31/17 01:38 VBG O2 Sat (Calc) 87.9 % (40-65) H 07/31/17 01:38 VBG Base Excess 1.9 mmol/L (0.0-2.0) 07/31/17 01:38 VBG Potassium 2.9 mmol/L (3.6-5.2) L 07/31/17 01:38 Sodium 137.0 mmol/l (132-148) 07/31/17 01:38 Chloride 103.0 mmol/L (98-107) 07/31/17 01:38 Glucose 107 mg/dl (65-105) H 07/31/17 01:38 Lactate 1.1 mmol/L (0.7-2.1) 07/31/17 01:38 Sodium 139 mmol/L (132-148) 08/03/17 06:29 Potassium 3.7 mmol/L (3.6-5.2) 08/03/17 06:29 Chloride 101 mmol/L (98-107) 08/03/17 06:29 Carbon Dioxide 28 mmol/L (22-30) 08/03/17 06:29 Anion Gap 13 (10-20) 08/03/17 06:29 BUN 11 mg/dL (7-17) 08/03/17 06:29 Creatinine 1.1 mg/dL (0.7-1.2) 08/03/17 06:29 Est GFR ( Amer) > 60 08/03/17 06:29 Est GFR (Non-Af Amer) 53 08/03/17 06:29 POC Glucose (mg/dL) 113 mg/dL (65-110) H 08/01/17 07:06 Random Glucose 95 mg/dL (65-105) 08/03/17 06:29 Calcium 9.3 mg/dl (8.6-10.4) 08/03/17 06:29 Phosphorus 3.6 mg/dL (2.5-4.5) 08/03/17 06:29 Magnesium 1.8 mg/dL (1.6-2.3) 08/03/17 06:29 Total Bilirubin 1.1 mg/dL (0.2-1.3) 08/03/17 06:29 AST 22 U/L (14-36) 08/03/17 06:29 ALT 21 U/L (9-52) 08/03/17 06:29 Alkaline Phosphatase 76 U/L (38-126) 08/03/17 06:29 Total Protein 7.0 g/dL (6.3-8.3) 08/03/17 06:29 Total Protein (PEP) 7.0 g/dL (6.1-8.1) 08/01/17 07:55 Albumin 4.2 g/dL (3.5-5.0) 08/03/17 06:29 Albumin (PEP) 4.1 g/dL (3.8-4.8) 08/01/17 07:55 Globulin 2.9 gm/dL (2.2-3.9) 08/03/17 06:29 Albumin/Globulin Ratio 1.4 (1.0-2.1) 08/03/17 06:29 Ugpai-6-Fnhnvbydn 0.3 g/dL (0.2-0.3) 08/01/17 07:55 Dznjs-8-Qzyejyxoj 0.8 g/dL (0.5-0.9) 08/01/17 07:55 Gjml-6-Pfhxbdbp 0.4 g/dL (0.4-0.6) 08/01/17 07:55 Ijix-1-Fbtzamqb 0.4 g/dL (0.2-0.5) 08/01/17 07:55 Gamma Globulins 1.0 g/dL (0.8-1.7) 08/01/17 07:55 Abnorm Protein Band 1 TEST NOT PERFORMED 08/01/17 07:55 Abnorm Protein Band 2 TEST NOT PERFORMED 08/01/17 07:55 Abnorm Protein Band 3 TEST NOT PERFORMED 08/01/17 07:55 Lipase 18 U/L (23-300) L 07/31/17 02:06 25-OH Vitamin D Total 26.6 NG/ML (30.0-100.0) L 07/31/17 11:15 TSH 3rd Generation 0.73 mIU/L (0.46-4.68) 07/31/17 02:06 Venous Blood Potassium 2.9 mmol/L (3.6-5.2) L 07/31/17 01:38 Urine Color Yellow (YELLOW) 08/02/17 21:29 Urine Clarity Clear (Clear) 08/02/17 21:29 Urine pH 6.0 (5.0-8.0) 08/02/17 21:29 Ur Specific Bonner 1.014 (1.003-1.030) 08/02/17 21:29 Urine Protein Negative mg/dL (NEGATIVE) 08/02/17 21:29 Urine Glucose (UA) Normal mg/dL (Normal) 08/02/17 21:29 Urine Ketones Trace mg/dL (NEGATIVE) 08/02/17 21:29 Urine Blood 2+ (NEGATIVE) H 08/02/17 21:29 Urine Nitrate Negative (NEGATIVE) 08/02/17 21:29 Urine Bilirubin Negative (NEGATIVE) 08/02/17 21:29 Urine Urobilinogen Normal mg/dL (0.2-1.0) 08/02/17 21:29 Ur Leukocyte Esterase Neg Stephanie/uL (Negative) 08/02/17 21:29 Urine WBC (Auto) < 1 /hpf (0-5) 08/02/17 21:29 Urine RBC (Auto) 15 /hpf (0-3) H 08/02/17 21:29 Ur Squamous Epith Cells 3 /hpf (0-5) 08/02/17 21:29 Urine Bacteria Occ (<OCC) H 08/02/17 21:29 Ur Random Creatinine 113.1 mg/dL 08/02/17 21:29 U Random Total Protein 13.0 mg/dL (0.0-12.0) H 08/02/17 21:38 Urine Total Volume 0.9 mg/dL 07/31/17 06:38 Urine Microalbumin 16.7 mg/L (0.0-16.6) H 08/02/17 21:18 Microalb/Creat Ratio 7 (<30) 07/31/17 06:38 Urine HCG, Qual Negative (NEGATIVE) 07/28/17 18:06 Urine Opiates Screen Positive (NEGATIVE) H 08/03/17 11:58 Urine Methadone Screen Positive (NEGATIVE) H 08/03/17 11:58 Ur Barbiturates Screen Negative (NEGATIVE) 08/03/17 11:58 Ur Phencyclidine Scrn Negative (NEGATIVE) 08/03/17 11:58 Ur Amphetamines Screen Negative (NEGATIVE) 08/03/17 11:58 U Benzodiazepines Scrn Negative (NEGATIVE) 08/03/17 11:58 U Oth Cocaine Metabols Positive (NEGATIVE) H 08/03/17 11:58 U Cannabinoids Screen Negative (NEGATIVE) 08/03/17 11:58 Alcohol, Quantitative < 10 mg/dl (0-10) 07/28/17 18:06 KJ & SPEP Interp See note 08/01/17 07:55 Serum Immunofixation Not detected (Not Detected) 08/01/17 07:55 TESFAYE 6 Profile Negative (NEGATIVE) 08/01/17 07:55 [place]/Lambda Light Chain (()) 08/01/17 07:55 Free [place] Light Chains 16.8 mg/L (3.3-19.4) 08/01/17 07:55 Free Lambda Light Chain 12.5 mg/L (5.7-26.3) 08/01/17 07:55 Free [place]/Lambda Ratio 1.34 (0.26-1.65) 08/01/17 07:55 RPR Nonreactive (NONREACTIVE) 08/01/17 07:55 Hep Bs Antigen Negative (NEGATIVE) 08/01/17 07:55 Hep Bs Antibody Positive (NEGATIVE) 08/01/17 07:55 Hepatitis C Antibody Negative (NEGATIVE) 07/29/17 16:42 HIV 1&2 Antibody Screen Negative (NEGATIVE) 07/29/17 16:42 Attending/Attestation - Attestation I have personally seen and examined this patient.: Yes I have fully participated in the care of the patient.: Yes I have reviewed all pertinent clinical information, including history, physical exam and plan: Yes Notes (Text): Patient seen, examined and case discussed with day-time resident. Patient seen this morning. Patient had showered this morning. Patient reports she is in good spirits and wants to see her godson. Patient has finished detox per psychiatry. Patient eager to outpatient rehab. Information offered on discharge. Per neurology, EEG is normal. No medications needed. Case discussed with nephrology, recommended for Cozaar 25mg once a day. Patient advised STRONGLY to stop her drug use that she can either alone from her heroin, cocaine or combination. Patient requests for UDS. Patient has left prior to UDS which shows it is still in her symptom; may be related to nature of the assay. Discharge Diagnoses: 1) Hypertensive Urgency-->resolved Hypertension, Controlled Assessment/Plan * Discharged on Cozaar 25mg once a daily (30 tabs); f/u PMD outpatient and stop the drug use 2) Acute Renal insufficiency-->normalized Assessment/Plan * Nephrology is on board-->help appreciated * Renal US: unremarkable * Normalized following IV fluid administration 3) Polysubstance abuse--Stable Assessment/Plan * Management per psychiatry * Patient is on methadone taper per psych * per psych patient has completed detox. 4) Seizures ruled out * Neurology (Dr. Puri) on board-->help appreciated * EEG: normal 5) Prophylactic measure * SCDS b/l * Pepcid 20mg PO bid * ambulatory
--- NOTE | 2017-08-03 19:48 | CP.PCM.PN ---
Objective - Vital Signs/Intake and Output Vital Signs (last 24 hours): Temp Pulse Resp BP Pulse Ox 98.7 F 88 20 132/82 96 08/03/17 08:25 08/03/17 08:25 08/03/17 08:25 08/03/17 08:25 08/03/17 08:25 - Labs Labs: 08/03/17 06:29 08/03/17 06:29 Assessment and Plan (1) Acute kidney injury Status: Resolved (2) Hypertension Status: Chronic (3) Proteinuria Status: Chronic (4) Hematuria Status: Chronic
[2017-08-04 04:58] LABS: ANCA SCREEN NEGATIVE (NEGATIVE)
== END 2017-08-03 13:19 | disposition home or self-care (01) | DRG 744 ==
LOC: C.ER 16:41 → C.7D 20:04 → C.6T 07-31 00:30
PROVIDERS: ADMIT Hospitalist; ATTEND Hospitalist
PROC: HZ2ZZZZ Detoxification Services for Substance Abuse Treatment (ICD-10-PCS; principal; 2017-07-28)
DX: F11.23 Opioid dependence with withdrawal (principal); N17.0 Acute kidney failure with tubular necrosis; F25.1 Schizoaffective disorder, depressive type; F17.210 Nicotine dependence, cigarettes, uncomplicated; F31.9 Bipolar disorder, unspecified; I10 Essential (primary) hypertension; K59.00 Constipation, unspecified; I16.0 Hypertensive urgency; F14.10 Cocaine abuse, uncomplicated; F12.10 Cannabis abuse, uncomplicated; F19.10 Other psychoactive substance abuse, uncomplicated